=== PATIENT | female | born 1960 | race Caucasian/White ===

== ENCOUNTER 2024-09-12 20:03 | Inpatient (IN) ==
--- NOTE | 2024-09-12 20:15 | Emergency Department Note ---
Impression & Plan Pulmonary edema, Acute exacerbation of chronic obstructive pulmonary disease, Acute respiratory distress ED Provider Note NAME: SRAVANI DAVIS AGE: 64 SEX: F : 1960 ARRIVES VIA: Ambulance INFORMANT: Patient, EMS ED PROVIDER(S): Emery Dorsey DO CHIEF COMPLAINT: Shortness of breath HPI: The patient is a 64-year-old female who has a history of cardiomyopathy CHF as well as COPD who presented to the emergency department for shortness of breath. The patient ran out of her Lasix approximately 3 days ago. She states that ever since that time she has been noticing worsening shortness of breath. She does note lower extremity swelling. She denies have any chest pain. She has had no hemoptysis. She denies any trauma. She does continue to use tobacco products. The patient was treated with IV Lasix as well as BiPAP prior to arrival. ROS: See above HPI for pertinent positives & negatives. A total of 10 systems reviewed and were otherwise negative. PAST MEDICAL HISTORY: See Below PAST SURGICAL HISTORY: See Below FAMILY HISTORY: See Below SOCIAL HISTORY: See Below HOME MEDICATIONS: See Below ALLERGIES: See Below VITALS: See Below PHYSICAL EXAMINATION: GENERAL: The patient is awake and alert. The patient is nonanxious appearing. EYES: The conjunctivae are clear. The pupils are round and reactive. EARS, NOSE, MOUTH AND THROAT: The nose is without any evidence of any deformity. NECK: The neck is nontender and supple. RESPIRATORY: Diminished breath sounds are noted throughout. There is faint rales in both lower lung sandoval. Conversational dyspnea is noted. CARDIOVASCULAR: Regular rate and rhythm noted there no murmurs rubs or gallops normal S1 normal S2. GASTROINTESTINAL: The abdomen is soft. Abdomen is nontender. MUSCULOSKELETAL/EXTREMITIES: There is no evidence of gross deformity full range of motion is noted in the hips and shoulders. SKIN: Pedal edema was noted bilaterally. Skin was cool and dry. NEUROLOGIC: Patient is awake alert and oriented x3 MEDICAL DECISION MAKING: The patient is a 64-year-old female who presented to the emergency department for an evaluation of difficulty breathing. The patient was placed on BiPAP prior to arrival. She was able to tolerate that for short period of time but ultimately required moving to high flow nasal cannula. Vital signs are reassuring. The patient was treated with IV Lasix prior to arrival as well as in the emergency department. The patient was also treated with DuoNeb therapy. I discussed patient's laboratory and radiographic studies with her. Given her findings I do feel the patient would be a better candidate for inpatient management. For this reason [facility] agreed to evaluate the patient in the emergency department for further management and disposition. The patient's condition was improved. Triage Nursing notes reviewed. Prior medical records reviewed Vital Signs: reviewed and remarkable for hypotension and tachycardia. Differential diagnosis: Reactive airway disease, pneumonia, pneumothorax, COPD, CHF, infections, cardiac ischemia, pulmonary embolism, musculoskeletal, gastrointestinal, as well as other pathologies. ER treatment provided: See below Diagnostics interpreted by me: ECG: EKG was obtained in the emergency department. My interpretation is sinus tachycardia at 114 bpm. PVCs were noted. Poor R wave progression was noted with low voltage throughout. This was compared to a tracing from August 06, 2024. No changes were noted Cardiac Monitoring: An order was placed for continuous cardiac monitoring. The monitor shows a rate of 114 bpm with sinus tachycardia. Laboratory studies: As stated above and show below. Imaging studies: See below. Radiographic imaging was reviewed by myself Consultation(s): I discussed this case with Dr. Mock who is on-call for the [facility]. ED COURSE: Procedures: none Critical Care: I have personally spent greater than 40 minutes of critical care time in the direct management of this patient. This includes bedside care, interpretation of diagnostic studies, and testing, discussion with consultants, patient, and family members, and other required patient management activities. This 40 minutes is in excess of all separately billable procedures. Past Med/Surg History Problem List (Updated 09/13/24 @ 00:13 by Emery Dorsey DO) Acute respiratory distress (Acute) Acute exacerbation of chronic obstructive pulmonary disease (Acute) Pulmonary edema (Acute) Dilated cardiomyopathy Acute exacerbation of CHF (congestive heart failure) (Acute) Hypomagnesemia (Acute) Hypomagnesemia Acute hypoxic respiratory failure Biventricular failure H/O umbilical hernia repair (09/10/22) Umbilical hernia repair. Dr. Perez Encounter for pre-operative examination High cholesterol Asthma History of bronchitis Adverse reaction to anesthetic agent 43 yrs ago, sodium pentothal- Stopped breathing Could hear and see everything Diabetes Hypertension no meds at this time History of x 2 History of appendectomy COPD (chronic obstructive pulmonary disease) uses inhalers daily Diabetic neuropathy Osteoarthritis Medical History Type 2 diabetes mellitus Chronic cough GERD (gastroesophageal reflux disease) Current smoker 2 pack per day smoker On home oxygen therapy 2.5 LPM @ HS Family History Mother CHF (congestive heart failure) Diabetes Heart disease Stroke Sister Cancer Diabetes Father Diabetes Heart disease Social History Smoking Status: Current every day smoker Tobacco Type: Cigarettes Age Started Using Tobacco: 12; packs per day: 2; Cigarettes Per Day: 2 packs per day - advised; Second Hand Exposure: Yes; Do You Dip or Chew Tobacco: No; Hx Alcohol Use: No Hx Substance Use: No Preferred Language: Lebanese Communication Ability: Effective Visual Impairment: No Limitations Billing And Accounting Staff Assistant Required: No Beliefs That Will Affect Care: None Current Living Situation: Spouse How many Children do You have: 3 Feels Safe at Home: Yes Diet: diabetic during the past year weight has: remained stable Assistive Devices: Oxygen - Continuous Allergies Allergies Allergy/AdvReac Type Severity Reaction Status Date / Time codeine Allergy Severe Hives Verified 09/12/24 21:51 Penicillins Allergy Severe Hives Verified 09/12/24 21:51 thiopental [From Pentothal] AdvReac Unknown awareness Verified 09/12/24 21:51 under anesthesia Home Meds Home Medications Medication Instructions Recorded Confirmed atorvastatin 20 mg tablet 20 mg PO QA 08/22/22 09/12/24 quetiapine 100 mg tablet (Seroquel) 100 mg PO HS 08/22/22 09/12/24 Oxygen Home 08/27/22 10/17/22 albuterol sulfate 2.5 mg/3 mL 2.5 mg inhalation Q4H PRN 08/27/22 09/12/24 (0.083 %) solution for nebulization Shortness Of Breath Or Wheezing albuterol sulfate 90 mcg/actuation 2 inh inhalation Q6H PRN Shortness 08/27/22 09/12/24 breath activated powder inhaler Of Breath Or Wheezing aspirin 81 mg tablet,delayed 81 mg PO DAILY 08/06/24 09/12/24 release pantoprazole 40 mg tablet,delayed 40 mg PO QAM 08/06/24 09/12/24 release quetiapine 25 mg tablet 25 mg PO QDL PRN ONLY IF NEEDED 08/06/24 09/12/24 PER PT. quetiapine 50 mg tablet 50 mg PO QDL PRN ONLY IF NEEDED 08/06/24 09/12/24 PER PT furosemide 40 mg tablet (Lasix) 40 mg PO BID 09/12/24 09/12/24 insulin glargine 100 unit/mL (3 20 unit subcut HS 09/12/24 09/12/24 mL) subcutaneous pen (Lantus Solostar U-100 Insulin) metoprolol succinate 25 mg 12.5 mg PO DAILY 09/12/24 09/12/24 tablet,extended release 24 hr Previous Rx's Medication Instructions Recorded docusate sodium 100 mg capsule 100 mg PO BID #0 caps 08/08/24 polyethylene glycol 3350 17 gram 17 g PO BID #0 ea 08/08/24 oral powder packet (Miralax) Results & Data (ED) Vital Signs Vital Signs - 24 hr 09/12/24 20:00 09/12/24 20:00 09/12/24 20:10 Temperature 36.8 C Temperature Source Oral Pulse Rate 115 H 112 H Pulse Rate [Finger] 116 H Pulse Rhythm [Finger] Respiratory Rate 15 15 24 Respiratory Effort / Characteristics Spontaneous Spontaneous Short of Breath SOB on Exertion Respiratory Depth Normal Normal Respiratory Pattern Regular Blood Pressure 112/80 Blood Pressure [Right Arm] Blood Pressure Mean 90 Blood Pressure Mean [Right Arm] Pulse Oximetry 100 100 100 Oxygen Delivery Method BiPAP BiPAP Oxygen Flow Rate 60 Fraction of Inspired Oxygen 60 SaO2/FiO2 Ratio Sepsis Recent Fever Within 48 Hours No Sepsis New/Unexplained Change in Mental Status N/A Sepsis Action Taken by Nursing No Action Required 09/12/24 20:15 09/12/24 20:24 09/12/24 20:48 Temperature Temperature Source Pulse Rate 112 H Pulse Rate [Finger] 134 H Pulse Rhythm [Finger] Respiratory Rate 26 H Respiratory Effort / Characteristics Spontaneous Accessory Muscle Use Respiratory Depth Respiratory Pattern Blood Pressure Blood Pressure [Right Arm] Blood Pressure Mean Blood Pressure Mean [Right Arm] Pulse Oximetry 100 97 Oxygen Delivery Method BiPAP High Flow Nasal Cannula Oxygen Flow Rate 60 Fraction of Inspired Oxygen 60 40 SaO2/FiO2 Ratio 166 Sepsis Recent Fever Within 48 Hours Sepsis New/Unexplained Change in Mental Status Sepsis Action Taken by Nursing 09/12/24 20:57 09/12/24 22:10 09/12/24 22:14 Temperature Temperature Source Pulse Rate Pulse Rate [Finger] 114 H 117 H 114 H Pulse Rhythm [Finger] Regular Respiratory Rate 26 H 20 18 Respiratory Effort / Characteristics Short of Breath Non-Labored Spontaneous Respiratory Depth Normal Normal Respiratory Pattern Blood Pressure Blood Pressure [Right Arm] 112/80 96/69 L Blood Pressure Mean Blood Pressure Mean [Right Arm] 90 78 Pulse Oximetry 97 97 96 Oxygen Delivery Method High Flow Nasal Cannula High Flow Nasal Cannula High Flow Nasal Cannula Oxygen Flow Rate 40 Fraction of Inspired Oxygen 60 50 SaO2/FiO2 Ratio 161 Sepsis Recent Fever Within 48 Hours Sepsis New/Unexplained Change in Mental Status Sepsis Action Taken by [facility] Medications Current Medication List: was personally reviewed by me Laboratory Data Attestation: I reviewed the patient's lab results. 09/12/24 20:17 09/12/24 20:17 Lab Results 09/12/24 09/12/24 09/12/24 Range/Units 20:17 20:50 22:58 WBC 7.97 (4.8-10.8) K/ul RBC 5.25 (4.20-5.40) M/uL Hgb 13.9 (12.0-16.0) g/dl Hct 45.0 (37.0-47.0) % MCV 85.7 (80.0-100.0) fL MCH 26.5 (25.0-34.0) pg MCHC 30.9 L (32.0-36.0) g/dL RDW Std Deviation 52.9 H (36.4-46.3) fL RDW Coeff of Robin 17.9 H (11.5-14.5) % Plt Count 288 (130-400) K/uL MPV 9.8 (9.4-12.4) fL Immature Gran % (Auto) 0.3 % Neut % (Auto) 71.9 % Lymph % (Auto) 20.1 % [place] % (Auto) 6.4 % Eos % (Auto) 0.4 % Baso % (Auto) 0.9 % Neut # (Auto) 5.74 (1.40-6.50) K/uL Lymph # (Auto) 1.60 (1.20-3.40) K/uL [place] # (Auto) 0.51 (0.11-0.59) K/uL Eos # (Auto) 0.03 (0.00-0.50) K/uL Baso # (Auto) 0.07 (0.00-0.20) K/uL Immature Gran # (Auto) 0.02 (0.01-0.20) K/uL PT 11.6 (9.0-12.0) Seconds INR 1.1 (0.9-1.1) APTT 22 (21-31) Seconds PTT Ratio 0.8 VBG pH 7.27 L (7.36-7.41) VBG pCO2 69 H (38-50) mmHg VBG pO2 57 mmHg VBG HCO3 32 mmol/L VBG O2 Saturation 85.1 % VBG Base Excess 2.6 mEq/L Sodium 140 (136-145) mmol/L Potassium 4.1 (3.5-5.1) mmol/L Chloride 97 L (98-107) mmol/L Carbon Dioxide 33 H (21-32) mmol/L Anion Gap 10 (3-11) BUN 19 (6-23) mg/dl Creatinine 0.84 (0.6-1.2) mg/dl Est Cr Clr Drug Dosing 62.3 ml/min eGFR 78.03 BUN/Creatinine Ratio 22.6 H (10-20) Glucose 240 H (70-99(Fasting)) mg/dl Calcium 9.5 (8.6-10.3) mg/dl Magnesium 1.7 (1.7-2.4) mg/dl Total Bilirubin 0.8 (0.2-1.0) mg/dl AST 14 (13-39) U/L ALT 24 (7-52) U/L Alkaline Phosphatase 176 H (34-104) U/L Troponin I High Sens 20.5 H 21.8 H (0-14) pg/ml B-Natriuretic Peptide 1241 H (0-100) pg/ml Total Protein 7.2 (6.0-8.3) gm/dl Albumin 3.7 (3.4-5.0) gm/dl Globulin 3.5 (2.5-4.0) gm/dl Albumin/Globulin Ratio 1.1 (0.9-2) Urine Color Urine Appearance (Clear) Urine pH (4.5-7.5) Ur Specific [place] (1.000-1.030) Urine Protein (Negative) Urine Glucose (UA) (Negative) Urine Ketones (Negative) Urine Blood (Negative) Urine Nitrite (Negative) Urine Bilirubin (Negative) Urine Urobilinogen (Negative) Ur Leukocyte Esterase (Negative) Urine WBC (Auto) (0-5) /hpf Urine RBC (Auto) (0-2) /hpf U Hyaline Cast (Auto) (0-2) /lpf U Epithel Cells (Auto) (0-2) /hpf Urine Bacteria (Auto) (None Seen) Urine Comment SARS-CoV-2 (PCR) NEGATIVE (Negative) Influenza Type A (PCR) Negative (Neg) Influenza Type B (PCR) Negative (Neg) RSV (RT-PCR) Negative (Neg) 09/12/24 Range/Units Unknown WBC (4.8-10.8) K/ul RBC (4.20-5.40) M/uL Hgb (12.0-16.0) g/dl Hct (37.0-47.0) % MCV (80.0-100.0) fL MCH (25.0-34.0) pg MCHC (32.0-36.0) g/dL RDW Std Deviation (36.4-46.3) fL RDW Coeff of Robin (11.5-14.5) % Plt Count (130-400) K/uL MPV (9.4-12.4) fL Immature Gran % (Auto) % Neut % (Auto) % Lymph % (Auto) % [place] % (Auto) % Eos % (Auto) % Baso % (Auto) % Neut # (Auto) (1.40-6.50) K/uL Lymph # (Auto) (1.20-3.40) K/uL [place] # (Auto) (0.11-0.59) K/uL Eos # (Auto) (0.00-0.50) K/uL Baso # (Auto) (0.00-0.20) K/uL Immature Gran # (Auto) (0.01-0.20) K/uL PT (9.0-12.0) Seconds INR (0.9-1.1) APTT (21-31) Seconds PTT Ratio VBG pH (7.36-7.41) VBG pCO2 (38-50) mmHg VBG pO2 mmHg VBG HCO3 mmol/L VBG O2 Saturation % VBG Base Excess mEq/L Sodium (136-145) mmol/L Potassium (3.5-5.1) mmol/L Chloride (98-107) mmol/L Carbon Dioxide (21-32) mmol/L Anion Gap (3-11) BUN (6-23) mg/dl Creatinine (0.6-1.2) mg/dl Est Cr Clr Drug Dosing ml/min eGFR BUN/Creatinine Ratio (10-20) Glucose (70-99(Fasting)) mg/dl Calcium (8.6-10.3) mg/dl Magnesium (1.7-2.4) mg/dl Total Bilirubin (0.2-1.0) mg/dl AST (13-39) U/L ALT (7-52) U/L Alkaline Phosphatase (34-104) U/L Troponin I High Sens (0-14) pg/ml B-Natriuretic Peptide (0-100) pg/ml Total Protein (6.0-8.3) gm/dl Albumin (3.4-5.0) gm/dl Globulin (2.5-4.0) gm/dl Albumin/Globulin Ratio (0.9-2) Urine Color Yellow Urine Appearance Clear (Clear) Urine pH 6.0 (4.5-7.5) Ur Specific [place] 1.011 (1.000-1.030) Urine Protein Trace H (Negative) Urine Glucose (UA) Trace H (Negative) Urine Ketones Negative (Negative) Urine Blood Negative (Negative) Urine Nitrite Negative (Negative) Urine Bilirubin Negative (Negative) Urine Urobilinogen Negative (Negative) Ur Leukocyte Esterase Negative (Negative) Urine WBC (Auto) 0-5 (0-5) /hpf Urine RBC (Auto) 0-2 (0-2) /hpf U Hyaline Cast (Auto) 3-5 H (0-2) /lpf U Epithel Cells (Auto) 3-5 H (0-2) /hpf Urine Bacteria (Auto) 1+ H (None Seen) Urine Comment SARS-CoV-2 (PCR) (Negative) Influenza Type A (PCR) (Neg) Influenza Type B (PCR) (Neg) RSV (RT-PCR) (Neg) Administered Medications Discontinued Medications Albuterol (Albut/Ipratrop 3mg/0.5mg Neb 3 Ml Vial) 12 ml NEB ONE ONE; Protocol Stop: 09/12/24 20:07 Last Admin: 09/12/24 20:19 Dose: 12 ml Documented By: ARMEN Albuterol (Albut/Ipratrop 3mg/0.5mg Neb 3 Ml Vial) Confirm Administered Dose 12 ml .ROUTE .STK-MED ONE Stop: 09/12/24 20:08 Last Admin: 09/12/24 20:19 Dose: Not Given Documented By: ARMEN Furosemide (Furosemide 40 Mg/4 Ml Vial) 40 mg IV ONE ONE Stop: 09/12/24 21:53 Last Admin: 09/12/24 22:08 Dose: 40 mg Documented By: LARON Lorazepam (Lorazepam 2 Mg/1 Ml Vial) 0.5 mg IV NOW STA Stop: 09/12/24 20:40 Last Admin: 09/12/24 20:51 Dose: 0.5 mg Documented By: LARON Imaging Data Attestation: I personally reviewed and interpreted this imaging study as follows: My Impression: 1 view chest x-ray was obtained in the emergency department. My interpretation is cardiomegaly with bilateral pleural effusions left greater than right. Final report below. Radiologist's Impression: Chest X-Ray 09/12/24 20:06 Exam(s): XR CXR 1 VIEW EXAM: XR Chest, 1 View CLINICAL HISTORY: Reason for exam: Dyspnea. TECHNIQUE: Frontal view of the chest. COMPARISON: 08/08/2024 FINDINGS: Lungs: See below. Pleural space: Blunting of the left costophrenic angle and streaky densities in both lung bases consistent with small left pleural effusion and mild basilar infiltrate or atelectasis. No pneumothorax. Heart: The cardiac silhouette is mildly enlarged. Mediastinum: Unremarkable. Normal mediastinal contour. Bones/joints: Unremarkable. No acute fracture. IMPRESSION: 1. Blunting of the left costophrenic angle and streaky densities in both lung bases consistent with small left pleural effusion and mild basilar infiltrate or atelectasis. 2. The cardiac silhouette is mildly enlarged. Electronically signed by: Theron Gunter MD 09/12/24 21:48 PM Discharge Plan Visit Data Chief Complaint: Edema To Extremity Stated Complaint: Edema in Lower Extremities, CHF ED Provider: Emery Dorsey Discharge Problem: Pulmonary edema, Acute exacerbation of chronic obstructive pulmonary disease, Acute respiratory distress Patient Disposition: Being Evaluated by Hospitalist Condition: Fair Forms Stand Alone Forms: My [facility] nxtControl Prescriptions Prescriptions: No Action quetiapine [Seroquel] 100 mg tablet 100 mg PO HS atorvastatin 20 mg tablet 20 mg PO QAM (DME) Oxygen Home Liters Per Minute See Rx Instructions .Route Rx Instructions: As directed, at night and with activity albuterol sulfate 90 mcg/actuation aerosol powdr breath activated 2 inh inhalation Q6H PRN (Reason: Shortness Of Breath Or Wheezing) albuterol sulfate 2.5 mg /3 mL (0.083 %) solution for nebulization 2.5 mg inhalation Q4H PRN (Reason: Shortness Of Breath Or Wheezing) quetiapine 25 mg tablet 25 mg PO QDL PRN (Reason: ONLY IF NEEDED PER PT.) aspirin 81 mg Tablet,Delayed Release (Dr/Ec) 81 mg PO DAILY pantoprazole 40 mg tablet,delayed release (DR/EC) 40 mg PO QAM quetiapine 50 mg tablet 50 mg PO QDL PRN (Reason: ONLY IF NEEDED PER PT) polyethylene glycol 3350 [Miralax] 17 gram Powder In Packet 17 g PO BID Qty: 0 0RF docusate sodium 100 mg Capsule 100 mg PO BID Qty: 0 0RF metoprolol succinate 25 mg tablet extended release 24 hr 12.5 mg PO DAILY insulin glargine [Lantus Solostar U-100 Insulin] 100 unit/mL (3 mL) insulin pen 20 unit SUBCUT HS furosemide [Lasix] 40 mg tablet 40 mg PO BID Referrals Referrals: Adrienne Malone PA-C [Primary Care Provider] -
[2024-09-12] MEDS: ALBUT/IPRATROP 3MG/0.5MG NEB 3 ML VIAL ONE (20:19)
[2024-09-12] MEDS: ALBUT/IPRATROP 3MG/0.5MG NEB 3 ML VIAL NEB ONE (20:19)
[2024-09-12 20:44] LABS: Hematocrit (blood only) 45.0 % (37.0-47.0); Hemoglobin 13.9 g/dl (12.0-16.0); Immature Granulocytes # (auto) 0.02 K/uL (0.01-0.20); Immature Granulocytes % (auto) 0.3 %; Mean Corpuscular Hemoglobin 26.5 pg (25.0-34.0); Mean Corpuscular Volume 85.7 fL (80.0-100.0); Platelet Count 288 K/uL (130-400); RDW Standard Deviation 52.9 fL (36.4-46.3); Red Blood Count 5.25 M/uL (4.20-5.40); White Blood Count 7.97 K/ul (4.8-10.8)
[2024-09-12 21:02] LABS: Base Excess VBG 2.6 mEq/L; HCO3 VBG 32 mmol/L; Oxygen Saturation VBG 85.1 %; PCO2 VBG 69 mmHg (38-50); PO2 VBG 57 mmHg; pH VBG 7.27 (7.36-7.41)
[2024-09-12 21:07] LABS: Alanine Aminotransferase 24.0 U/L (7-52); Albumin Globulin Ratio 1.1 (0.9-2); Alkaline Phosphatase 176.0 U/L (34-104); Anion Gap 10.0 (3-11); Bilirubin,Total 0.8 mg/dl (0.2-1.0); Blood Urea Nitrogen 19.0 mg/dl (6-23); Calcium 9.5 mg/dl (8.6-10.3); Carbon Dioxide 33.0 mmol/L (21-32); Chloride 97.0 mmol/L (98-107); Creatinine Clr Calc Pharmacy 62.3 ml/min; Globulin 3.5 gm/dl (2.5-4.0); Glucose 240.0 mg/dl (70-99(Fasting)); Magnesium 1.7 mg/dl (1.7-2.4); Potassium 4.1 mmol/L (3.5-5.1); Sodium 140.0 mmol/L (136-145); Total Protein 7.2 gm/dl (6.0-8.3)
[2024-09-12 21:24] LABS: INR 1.1 (0.9-1.1); Partial Thromboplastin Time 22 Seconds (21-31); Prothrombin Time 11.6 Seconds (9.0-12.0)
[2024-09-12 21:27] LABS: Influenza A virus by PCR Negative (Neg); Influenza B virus by PCR Negative (Neg); SARS CoV2 RNA(COVID-19) Ceph NEGATIVE (Negative)
--- NOTE | 2024-09-12 21:49 | XRay Report ---
Exam(s): XR CXR 1 VIEW EXAM: XR Chest, 1 View CLINICAL HISTORY: Reason for exam: Dyspnea. TECHNIQUE: Frontal view of the chest. COMPARISON: 08/08/2024 FINDINGS: Lungs: See below. Pleural space: Blunting of the left costophrenic angle and streaky densities in both lung bases consistent with small left pleural effusion and mild basilar infiltrate or atelectasis. No pneumothorax. Heart: The cardiac silhouette is mildly enlarged. Mediastinum: Unremarkable. Normal mediastinal contour. Bones/joints: Unremarkable. No acute fracture. IMPRESSION: 1. Blunting of the left costophrenic angle and streaky densities in both lung bases consistent with small left pleural effusion and mild basilar infiltrate or atelectasis. 2. The cardiac silhouette is mildly enlarged. Electronically signed by: Theron Gunter MD 09/12/24 21:48 PM
[2024-09-12] MEDS: FUROSEMIDE 40 MG/4 ML VIAL IV ONE (22:08)
[2024-09-12 22:30] LABS: Appearance Urine Clear (Clear); Bacteria Urine Automated 1+ (None Seen); Glucose Urine UA Trace (Negative); RBC Urine Automated 0-2 /hpf (0-2); WBC Urine Automated 0-5 /hpf (0-5)
--- NOTE | 2024-09-12 23:26 | History & Physical Report ---
Date of Service September 12, 2024 Assessment & Plan (1) Acute on chronic respiratory failure with hypoxia and hypercapnia: (2) Acute on chronic systolic heart failure: (3) Candidiasis of mouth and esophagus: (4) Dilated cardiomyopathy: (5) COPD (chronic obstructive pulmonary disease): (6) Hypertension: (7) Type 2 diabetes mellitus: (8) GERD (gastroesophageal reflux disease): (9) Current smoker: Plan Ms Silveira is a 64yo female with long-standing chronic hypoxic respiratory fail ure on home O2, 3 liters continuously; COPD; ongoing tobacco dependence; T2DM; and recently diagnosed severe systolic CHF during her hospitalization in July from 08/04 to 08/06. She presents via EMS from her home with severe dyspnea at rest, dyspnea with minimal exertion, orthopnea, PND, worsening LE edema, worsening abdominal bloating/distension from edema, and at least 10 pounds of fluid weight since her hospital discharge on 08/06. She reports compliance with her lasix 40mg BID but ran out of such about 3 days ago. She has not been eating high-salt foods. #acute/chronic respiratory failure with hypoxia & hypercapnia - -despite high pCO2 on blood gas she was awake, alert, gave full history -could not tolerate BIPAP; thus changed to high-flow NC to help with increased work of breathing -- tolerating such -acute component 2nd to decompensated CHF -titrate O2 to keep sats 90-92% #acute/chronic systolic CHF - -severe systolic CHF was diagnosed in July during her hospitalization -EF 15-20% -was taking lasix 40mg BID leading up to this re-admission; despite taking BID lasix she had significant weight gain over the last few weeks -patient reports recent prednisone taper for COPD flare earlier this month; steroids may have caused fluid retention -running out of lasix did not help either -will place on lasix 40mg IV BID -consider addition of aldactone if BP allows -consider addition of low-dose Entresto later in the stay if BP allows -cont meto succ 12.5mg daily -place on K/mag supplementation -daily weights -patient asks if she can have her heart cath here at [facility] rather than [place]; although this would be the customary work-up for newly found cardiomyopathy not sure she is a great candidate for cath; would defer this decision to [facility] Cardiology -after hospital discharge she should follow with a CHF clinic given the severity of her systolic dysfunction - she is interested in following with [facility] CHF clinic (she would be switching from cardiology in [place]) #T2DM, uncontrolled - -cont lantus -cont novolog SSI - try correction factor 45; carb ratio 1:15 -BSGs ac/hs #candidiasis of mouth - -likely 2nd to recent prednisone/abx as well as chronic inhalers -nystatin solution 5ml QID #COPD - -no exacerbation at this time -takes Trelegy at home - will convert to fluticasone furoate 1 puff daily + umeclidinium/vilanterol 1 puff daily -albuterol nebs prn -O2 #tobacco dependence - -offer nicoderm patch #DVT proph - -add lovenox 40mg daily pt's children updated at bedside History of Present Illness Chief Complaint: worsening shortness of breath, edema Primary Care Provider: Adrienne Malone PA-C Ms Silveira is a 64yo female with long-standing chronic hypoxic respiratory failure on home O2, 3 liters continuously; COPD; ongoing tobacco dependence; T2DM; and recently diagnosed severe systolic CHF during her hospitalization in July from 08/04 to 08/06. She presents via EMS from her home with severe dyspnea at rest, dyspnea with minimal exertion, orthopnea, PND, worsening LE edema, worsening abdominal bloating/distension from edema, and at least 10 pounds of fluid weight since her hospital discharge on 08/06. She reports compliance with her lasix 40mg BID but ran out of such about 3 days ago. She has not been eating high-salt foods. After her July hospitalization she saw Dr Teena Moncada, cardiology in [place], and left heart cath was recommended as part of her work-up of the new-onset systolic CHF. This was scheduled for sometime in September. Upon presentation today to [facility] ER she was in distress and BIPAP was initiated. She could not tolerate such and thus was switched to high-flow NC. She did better with high-flow and her distress improved. Lasix IV was given by the ER attending. At the time of my assessment she was on high-flow NC, 40 liters/50% FiO2. She was able to give full history and reported her breathing was better in comparison to earlier in the day. Allergies Allergy/AdvReac Type Severity Reaction Status Date / Time codeine Allergy Severe Hives Verified 09/12/24 21:51 Penicillins Allergy Severe Hives Verified 09/12/24 21:51 thiopental [From Pentothal] AdvReac Unknown awareness Verified 09/12/24 21:51 under anesthesia Home Medications Medication Instructions Recorded Confirmed Type atorvastatin 20 mg tablet 20 mg PO QAM 08/22/22 09/12/24 History quetiapine 100 mg tablet (Seroquel) 100 mg PO HS 08/22/22 09/12/24 History Oxygen Home 08/27/22 10/17/22 History albuterol sulfate 2.5 mg/3 mL 2.5 mg inhalation Q4H PRN 08/27/22 09/12/24 History (0.083 %) solution for nebulization Shortness Of Breath Or Wheezing albuterol sulfate 90 mcg/actuation 2 inh inhalation Q6H PRN Shortness 08/27/22 09/12/24 History breath activated powder inhaler Of Breath Or Wheezing aspirin 81 mg tablet,delayed 81 mg PO DAILY 08/06/24 09/12/24 History release pantoprazole 40 mg tablet,delayed 40 mg PO QAM 08/06/24 09/12/24 History release quetiapine 25 mg tablet 25 mg PO QDL PRN ONLY IF NEEDED 08/06/24 09/12/24 History PER PT. quetiapine 50 mg tablet 50 mg PO QDL PRN ONLY IF NEEDED 08/06/24 09/12/24 History PER PT docusate sodium 100 mg capsule 100 mg PO BID #0 caps 08/08/24 09/12/24 Rx polyethylene glycol 3350 17 gram 17 g PO BID #0 ea 08/08/24 09/12/24 Rx oral powder packet (Miralax) furosemide 40 mg tablet (Lasix) 40 mg PO BID 09/12/24 09/12/24 History insulin glargine 100 unit/mL (3 20 unit subcut HS 09/12/24 09/12/24 History mL) subcutaneous pen (Lantus Solostar U-100 Insulin) metoprolol succinate 25 mg 12.5 mg PO DAILY 09/12/24 09/12/24 History tablet,extended release 24 hr Past Med/Surg History Problem List (Updated 09/13/24 @ 05:43 by Balwinder Mock MD) Candidiasis of mouth and esophagus Acute on chronic systolic heart failure Acute on chronic respiratory failure with hypoxia and hypercapnia Acute respiratory distress (Acute) Acute exacerbation of chronic obstructive pulmonary disease (Acute) Pulmonary edema (Acute) Acute exacerbation of CHF (congestive heart failure) (Acute) Hypomagnesemia (Acute) Medical History (Updated 09/13/24 @ 05:43 by Balwinder Mock MD) Systolic CHF EF 15-20%, echo 07/2024 Chronic hypoxic respiratory failure on home O2, 3 liters continuously Dilated cardiomyopathy Biventricular failure Asthma High cholesterol Adverse reaction to anesthetic agent 43 yrs ago, sodium pentothal- Stopped breathing Could hear and see everything Osteoarthritis Diabetic neuropathy COPD (chronic obstructive pulmonary disease) uses inhalers daily Hypertension no meds at this time Diabetes Type 2 diabetes mellitus Chronic cough GERD (gastroesophageal reflux disease) Current smoker 2 pack per day smoker On home oxygen therapy 3 liters continuously Surgical History (Updated 09/13/24 @ 05:36 by Balwinder Mock MD) H/O umbilical hernia repair (09/10/22) Umbilical hernia repair. Dr. Perez History of appendectomy History of x 2 Family History (Updated 09/13/24 @ 05:37 by Balwinder Mock MD) Mother , age 58 CHF (congestive heart failure) Diabetes Heart disease Stroke Sister Cancer Diabetes Lung disease Father , age 59 Diabetes Heart disease Valvular heart disease Social History (Updated 09/13/24 @ 05:37 by Balwinder Mock MD) Smoking Status: Current every day smoker Tobacco Type: Cigarettes Age Started Using Tobacco: 13; packs per day: 2; Second Hand Exposure: Yes; Do You Dip or Chew Tobacco: No; Hx Alcohol Use: No Hx Substance Use: No Preferred Language: Guatemalan Communication Ability: Effective Visual Impairment: No Limitations Hosiery Bagger Required: No Beliefs That Will Affect Care: None marital status: Current Living Situation: Spouse How many Children do You have: 6 How many Children do You have Comment: 2 biological children; 4 step-children Feels Safe at Home: Yes Diet: diabetic during the past year weight has: remained stable Assistive Devices: Cane, Oxygen - Continuous and Walker Review of Systems Review of Systems: gen - no fevers or chills; appetite has been poor of late; +weight gain eyes - no visual change HENT - mild sore throat, no ear pain CV - no chest pain; +edema, orthopnea, PND Pulm - cough with minimal sputum; +dyspnea at rest & with exertion GI - bloating; no pain; no vomiting; no blood in stool - no dysuria musculo - no joint swelling endo - BSGs have been high at home skin - "bumps" on back of arms neuro - no focal motor weakness Results & Data Results & Data Vital Signs (Past 12 Hours) Vital Signs Temp Pulse Pulse Resp BP BP Pulse Ox 09/12/24 22:14 114 H 18 96 09/12/24 22:10 117 H 20 96/69 L 97 09/12/24 20:57 114 H 26 H 112/80 97 09/12/24 20:48 134 H 26 H 97 09/12/24 20:24 112 H 09/12/24 20:15 100 09/12/24 20:10 36.8 C 112 H 24 112/80 100 09/12/24 20:00 115 H 15 100 09/12/24 20:00 116 H 15 100 O2 Del Method O2 Flow Rate FiO2 09/12/24 22:14 High Flow Nasal Cannula 40 50 09/12/24 22:10 High Flow Nasal Cannula 60 09/12/24 20:57 High Flow Nasal Cannula 09/12/24 20:48 High Flow Nasal Cannula 60 40 09/12/24 20:24 09/12/24 20:15 BiPAP 60 09/12/24 20:10 BiPAP 09/12/24 20:00 60 09/12/24 20:00 BiPAP 60 Laboratory Results Laboratory Results - last 24 hr 09/12/24 09/12/24 09/12/24 20:17 20:50 22:58 WBC 7.97 RBC 5.25 Hgb 13.9 Hct 45.0 MCV 85.7 MCH 26.5 MCHC 30.9 L RDW Std Deviation 52.9 H RDW Coeff of Robin 17.9 H Plt Count 288 MPV 9.8 Immature Gran % (Auto) 0.3 Neut % (Auto) 71.9 Lymph % (Auto) 20.1 Christian % (Auto) 6.4 Eos % (Auto) 0.4 Baso % (Auto) 0.9 Neut # (Auto) 5.74 Lymph # (Auto) 1.60 Christian # (Auto) 0.51 Eos # (Auto) 0.03 Baso # (Auto) 0.07 Immature Gran # (Auto) 0.02 PT 11.6 INR 1.1 APTT 22 PTT Ratio 0.8 VBG pH 7.27 L VBG pCO2 69 H VBG pO2 57 VBG HCO3 32 VBG O2 Saturation 85.1 VBG Base Excess 2.6 Sodium 140 Potassium 4.1 Chloride 97 L Carbon Dioxide 33 H Anion Gap 10 BUN 19 Creatinine 0.84 Est Cr Clr Drug Dosing 62.3 eGFR 78.03 BUN/Creatinine Ratio 22.6 H Glucose 240 H Calcium 9.5 Magnesium 1.7 Total Bilirubin 0.8 AST 14 ALT 24 Alkaline Phosphatase 176 H Troponin I High Sens 20.5 H 21.8 H B-Natriuretic Peptide 1241 H Total Protein 7.2 Albumin 3.7 Globulin 3.5 Albumin/Globulin Ratio 1.1 Urine Color Urine Appearance Urine pH Ur Specific [place] Urine Protein Urine Glucose (UA) Urine Ketones Urine Blood Urine Nitrite Urine Bilirubin Urine Urobilinogen Ur Leukocyte Esterase Urine WBC (Auto) Urine RBC (Auto) U Hyaline Cast (Auto) U Epithel Cells (Auto) Urine Bacteria (Auto) Urine Comment SARS-CoV-2 (PCR) NEGATIVE Influenza Type A (PCR) Negative Influenza Type B (PCR) Negative RSV (RT-PCR) Negative 09/12/24 Unknown WBC RBC Hgb Hct MCV MCH MCHC RDW Std Deviation RDW Coeff of Robin Plt Count MPV Immature Gran % (Auto) Neut % (Auto) Lymph % (Auto) Christian % (Auto) Eos % (Auto) Baso % (Auto) Neut # (Auto) Lymph # (Auto) Christian # (Auto) Eos # (Auto) Baso # (Auto) Immature Gran # (Auto) PT INR APTT PTT Ratio VBG pH VBG pCO2 VBG pO2 VBG HCO3 VBG O2 Saturation VBG Base Excess Sodium Potassium Chloride Carbon Dioxide Anion Gap BUN Creatinine Est Cr Clr Drug Dosing eGFR BUN/Creatinine Ratio Glucose Calcium Magnesium Total Bilirubin AST ALT Alkaline Phosphatase Troponin I High Sens B-Natriuretic Peptide Total Protein Albumin Globulin Albumin/Globulin Ratio Urine Color Yellow Urine Appearance Clear Urine pH 6.0 Ur Specific [place] 1.011 Urine Protein Trace H Urine Glucose (UA) Trace H Urine Ketones Negative Urine Blood Negative Urine Nitrite Negative Urine Bilirubin Negative Urine Urobilinogen Negative Ur Leukocyte Esterase Negative Urine WBC (Auto) 0-5 Urine RBC (Auto) 0-2 U Hyaline Cast (Auto) 3-5 H U Epithel Cells (Auto) 3-5 H Urine Bacteria (Auto) 1+ H Urine Comment SARS-CoV-2 (PCR) Influenza Type A (PCR) Influenza Type B (PCR) RSV (RT-PCR) Diagnostic Findings Chest X-Ray 09/12/24 20:06 Exam(s): XR CXR 1 VIEW EXAM: XR Chest, 1 View CLINICAL HISTORY: Reason for exam: Dyspnea. TECHNIQUE: Frontal view of the chest. COMPARISON: 08/08/2024 FINDINGS: Lungs: See below. Pleural space: Blunting of the left costophrenic angle and streaky densities in both lung bases consistent with small left pleural effusion and mild basilar infiltrate or atelectasis. No pneumothorax. Heart: The cardiac silhouette is mildly enlarged. Mediastinum: Unremarkable. Normal mediastinal contour. Bones/joints: Unremarkable. No acute fracture. IMPRESSION: 1. Blunting of the left costophrenic angle and streaky densities in both lung bases consistent with small left pleural effusion and mild basilar infiltrate or atelectasis. 2. The cardiac silhouette is mildly enlarged. Electronically signed by: Theron Gunter MD 09/12/24 21:48 PM EKG - my reading - sinus tach, LBBB, Q's anterior leads, low volate in some leads, no significant changes from prior EKG Code Status & VTE Plan Code Status DNR/DNI VTE Prophylaxis Plan VTE Prophylaxis will be ordered: Yes PG Care Time/CCT Total # of Minutes Spent Total Time Spent with Patient: Total time spent is greater than 50% in coordination of care (as documented) at patient's floor/unit and/or counseling patient: Coding Level of Care Code 05527 INT INP/OBS CARE 3/75MIN Diagnoses Acute on chronic respiratory failure with hypoxia and hypercapnia J96.21; J96.22 Acute on chronic systolic heart failure I50.23 Candidiasis of mouth and esophagus B37.81; B37.0 Dilated cardiomyopathy I42.0 COPD (chronic obstructive pulmonary disease) J44.9 Hypertension I10 Type 2 diabetes mellitus E11.9 GERD (gastroesophageal reflux disease) K21.9 Current smoker F17.200
[2024-09-13] MEDS: LANTUS PER UNIT CHARGE SQ ONE (00:54)
[2024-09-13] MEDS ORDERED: ALBUTEROL 0.083% NEBU SOLN 3 ML VIAL INH PRN (02:01)
[2024-09-13] MEDS ORDERED: NITROGLYCERIN SL 0.4 MG/TAB TAB SL PRN (02:01)
[2024-09-13] MEDS ORDERED: MELATONIN 3 MG TAB PO PRN (02:01)
[2024-09-13] MEDS ORDERED: GLUCOSE 10 TAB/TUBE PO PRN ×2 (02:30→07:28)
[2024-09-13] MEDS ORDERED: GLUCOSE 40% GEL 15 GM TUBE PO PRN ×2 (02:30→07:28)
[2024-09-13] MEDS ORDERED: GLUCAGON FOR INJ 1 MG VIAL SQ PRN ×2 (02:30→07:28)
[2024-09-13] MEDS ORDERED: CARBOHYDRATES FOR HYPOGLYCEMIA PO PRN (02:30)
[2024-09-13] MEDS ORDERED: DEXTROSE 50% 50 ML SYRINGE IV PRN ×2 (02:30→07:28)
[2024-09-13] MEDS: NYSTATIN SUSP 500,000 U/5 ML UDC PO SCH (03:34)
[2024-09-13] MEDS ORDERED: INSULIN ASPART PER UNIT CHARGE SC SCH (07:30)
[2024-09-13 07:57] LABS: Anion Gap 4.0 (3-11); Blood Urea Nitrogen 18.0 mg/dl (6-23); Calcium 8.6 mg/dl (8.6-10.3); Carbon Dioxide 36.0 mmol/L (21-32); Chloride 100.0 mmol/L (98-107); Creatinine Clr Calc Pharmacy 65.5 ml/min; Glucose 246.0 mg/dl (70-99(Fasting)); Potassium 3.7 mmol/L (3.5-5.1); Sodium 140.0 mmol/L (136-145)
[2024-09-13] MEDS: INSULIN ASPART PER UNIT CHARGE SC SCH (08:12)
[2024-09-13] MEDS: FLUTICASONE FUROATE 100MCG 14 PUFFS/INHALER INH SCH (08:14)
[2024-09-13] MEDS: UMECLIDINIUM/VILANTEROL 62.5/25MCG 7 PUFFS/INHALER INH SCH (08:14)
[2024-09-13] MEDS: ENOXAPARIN INJ 40 MG/0.4 ML SYR SQ SCH (08:17)
[2024-09-13] MEDS: MAGNESIUM OXIDE 400 MG TAB PO SCH ×2 (08:18→21:53)
[2024-09-13] MEDS: ASPIRIN 81 MG ECTAB PO SCH (08:18)
[2024-09-13] MEDS: ATORVASTATIN 20 MG TAB PO SCH (08:18)
[2024-09-13] MEDS: FUROSEMIDE 40 MG/4 ML VIAL IV SCH (08:19)
[2024-09-13] MEDS: DOCUSATE SODIUM 100 MG CAP PO SCH (08:19)
[2024-09-13] MEDS: POLYETHYLENE (MIRALAX) 17 GM PACK PO SCH (08:19)
[2024-09-13] MEDS: POTASSIUM CHLORIDE CRTAB 20 MEQ TABCR PO SCH (08:19)
[2024-09-13] MEDS: REMOVE NICODERM PATCH SCH (08:21)
[2024-09-13] MEDS: INSULIN HUMAN NPH SC SCH (08:22)
[2024-09-13] MEDS ORDERED: METOPROLOL SUCC 25MG EXT REL TAB PO SCH (09:00)
[2024-09-13] MEDS: NICOTINE 14 MG/24 HR PATCH TD SCH (10:12)
[2024-09-13] MEDS: METOPROLOL SUCC 25MG EXT REL TAB PO SCH (10:12)
[2024-09-13] MEDS: MAGNESIUM SULFATE / D5W 1 GM/100 ML BAG IV SCH (10:40)
--- NOTE | 2024-09-13 14:26 | Hospitalist Progress Note ---
Date of Service September 13, 2024 Assessment & Plan (1) Acute on chronic respiratory failure with hypoxia and hypercapnia: Plan: Supplemental oxygen per nasal cannula to keep saturations 90 to 92%. Avoid high oxygen saturations to prevent further CO2 retention. Wean to usual levels as tolerated. She is currently requiring high flow oxygen (2) Acute on chronic systolic heart failure: Plan: Ongoing brisk diuresis with parenteral Lasix. Will repeat chest x-ray again tomorrow, September 14. (3) Candidiasis of mouth and esophagus: Plan: Probably due to recent steroid therapy coupled with diabetes. Nystatin swish and swallow ordered (4) Dilated cardiomyopathy: Plan: Known ejection fraction of 15% per recent echo. Continue current medical management (5) COPD (chronic obstructive pulmonary disease): Plan: With chronic respiratory failure. Treat underlying CHF. Continue current medical management (6) Hypertension: Plan: Blood pressure is low normal currently. Metoprolol has been uptitrated. Will follow (7) Type 2 diabetes mellitus: Plan: NPH insulin twice daily. Sliding scale coverage as needed. ADA diet (8) Current smoker: Plan: Smoking cessation has been highly recommended to the patient Plan Hopeful discharge back home in 2 to 3 days Admission and Anticipated Discharge Date Admission Date: September 12, 2024 Subjective Alert and oriented. No distress. 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 She has diuresed briskly with parenteral Lasix. She would like to get established with [facility] cardiology and a consult will be placed tomorrow, September 14. Lantus insulin has been switched over to NPH twice daily. Magnesium replacement continues. Review of Systems 2 Review of Systems: Constitutionalno fever or chills. Recent weight gain and worsening peripheral edema ENTno blurred vision, no double vision, no epistaxis, no sore throat Respiratoryno cough, no wheezing. She has noted recent orthopnea and dyspnea on exertion Cardiacno palpitations, no chest pain, no syncope Brayden nausea, vomiting, diarrhea, melena, hematochezia GUno urinary retention, no urinary incontinence, no dysuria, no hematuria Musculoskeletalno joint pain, no muscle tenderness. She has noticed a worsening lower extremity edema bilaterally Skinno bruising, no rashes, no pruritus Neurono isolated weakness, no paresthesia, no weakness Psychno depression, no anxiety Physical Exam 2 Physical Exam: General-alert and oriented x3, no fever, no chills HEENT-head atraumatic and normocephalic, pupils equal and reactive to light, extraocular muscles intact. Oral thrush noted Neck-no lymphadenopathy or thyromegaly, trachea midline Chest-bibasilar inspiratory rales. No rhonchi. No wheeze Cardiac-regular rate and rhythm, normal S1 and S2 Abdomen-normal bowel sounds, no hepatosplenomegaly Extremities-2+ pitting edema bilateral lower extremities below the knees Neuro-cranial nerves II through XII intact, motor and sensory function within normal limits, strength symmetrical, no focal deficits Psych-normal affect, normal mood Results & Data Results & Data Vital Signs (Past 12 Hours) Vital Signs Temp Pulse Pulse Resp BP BP Pulse Ox 09/13/24 10:49 36.6 C 106 H 18 102/71 96 09/13/24 10:00 99 H 09/13/24 10:00 09/13/24 07:55 36.5 C 107 H 18 84/58 L 96 09/13/24 07:00 93/67 L 09/13/24 03:24 36.6 C 107 H 16 106/68 93 O2 Del Method O2 Flow Rate 09/13/24 10:49 Nasal Cannula 10 09/13/24 10:00 09/13/24 10:00 Nasal Cannula 10 09/13/24 07:55 Nasal Cannula 10 09/13/24 07:00 09/13/24 03:24 High Flow Nasal Cannula 10 Laboratory Results 09/12/24 20:17 09/13/24 07:07 PG Care Time/CCT Total # of Minutes Spent Total Time Spent with Patient: Total time spent is greater than 50% in coordination of care (as documented) at patient's floor/unit and/or counseling patient: Coding Level of Care Code 76136 SUB INP/OBS CARE 3/50MIN Diagnoses Acute on chronic respiratory failure with hypoxia and hypercapnia J96.21; J96.22 Acute on chronic systolic heart failure I50.23 Candidiasis of mouth and esophagus B37.81; B37.0 Dilated cardiomyopathy I42.0 COPD (chronic obstructive pulmonary disease) J44.9 Hypertension I10 Type 2 diabetes mellitus E11.9 Current smoker F17.200
[2024-09-13] MEDS ORDERED: LANTUS PER UNIT CHARGE SQ SCH (21:00)
[2024-09-14 06:37] LABS: Hematocrit (blood only) 35.4 % (37.0-47.0); Hemoglobin 10.8 g/dl (12.0-16.0); Mean Corpuscular Hemoglobin 26.3 pg (25.0-34.0); Mean Corpuscular Volume 86.1 fL (80.0-100.0); Platelet Count 201 K/uL (130-400); RDW Standard Deviation 53.0 fL (36.4-46.3); Red Blood Count 4.11 M/uL (4.20-5.40); White Blood Count 7.02 K/ul (4.8-10.8)
[2024-09-14 06:56] LABS: Anion Gap 5.0 (3-11); Blood Urea Nitrogen 20.0 mg/dl (6-23); Calcium 8.7 mg/dl (8.6-10.3); Carbon Dioxide 36.0 mmol/L (21-32); Chloride 100.0 mmol/L (98-107); Creatinine Clr Calc Pharmacy 56.9 ml/min; Glucose 192.0 mg/dl (70-99(Fasting)); Magnesium 1.8 mg/dl (1.7-2.4); Potassium 3.5 mmol/L (3.5-5.1); Sodium 141.0 mmol/L (136-145)
[2024-09-14 06:59] LABS: Immature Granulocytes # (auto) 0.01 K/uL (0.01-0.20); Immature Granulocytes % (auto) 0.1 %
--- NOTE | 2024-09-14 08:11 | XRay Report ---
EXAM: XR chest 1V portable CLINICAL HISTORY: CHF TECHNIQUE: An X-ray image of the chest is obtained in AP projection. COMPARISON: 09/12/2024. FINDINGS: Pulmonary Parenchyma: Left lower and middle zone opacification suggesting moderate left pleural effusion, interval increased. Interval demonstration of right lower zone opacity suggesting mild pleural effusion. Unchanged prominent bilateral parahilar markings likely congestion. Heart and Mediastinum: Moderate cardiomegaly. No mediastinal widening or masses. No hilar or mediastinal lymphadenopathy. Bony Thorax: Bony thorax appears intact without fractures or deformities. Soft Tissues: Soft tissues overlying the chest wall are unremarkable. IMPRESSION: 1. Interval increase of moderate left pleural effusion and new finding of mild right pleural effusion. 2. Unchanged prominent bilateral parahilar markings likely congestion. 3. Moderate cardiomegaly. Electronically signed by Rafal Prescott 09-14-2024 08:11 AM
--- NOTE | 2024-09-14 11:00 | Hospitalist Progress Note ---
Date of Service September 14, 2024 Assessment & Plan (1) Acute on chronic respiratory failure with hypoxia and hypercapnia: Plan: Supplemental oxygen per nasal cannula to keep saturations 90 to 92%. Avoid high oxygen saturations to prevent further CO2 retention. Wean to usual levels as tolerated. (2) Acute on chronic systolic heart failure: Plan: Diuresis has slowed due to hypotension. Continue parenteral Lasix. Chest x-ray done today, September 14, looks somewhat worse with increasing size of pleural effusions. Will repeat chest x-ray again tomorrow, September 15. (3) Hypotension: Plan: Midodrine started for systemic hypotension. Hopefully we can avoid inotropic support. (4) Candidiasis of mouth and esophagus: Plan: Probably due to recent steroid therapy coupled with diabetes. Improving with nystatin swish and swallow (5) Dilated cardiomyopathy: Plan: Known ejection fraction of 15% per recent echo. Continue current medical management (6) COPD (chronic obstructive pulmonary disease): Plan: With chronic respiratory failure. Treat underlying CHF. Continue current medical management (7) Hypertension: Plan: Blood pressure is low currently. Midodrine has been started. Metoprolol dosage has been increased if tolerated. Will follow (8) Type 2 diabetes mellitus: Plan: NPH insulin twice daily. Sliding scale coverage as needed. ADA diet (9) Current smoker: Plan: Smoking cessation has been highly recommended to the patient Plan To be determined by clinical response to treatment Admission and Anticipated Discharge Date Admission Date: September 12, 2024 Subjective Alert and oriented. No distress. Blood pressure is running low and midodrine has been added for blood pressure support. Potassium dosage uptitrated to twice daily dosing due to borderline low potassium levels. Review of Systems 2 Review of Systems: Constitutionalno fever or chills. Recent weight gain and worsening peripheral edema ENTno blurred vision, no double vision, no epistaxis, no sore throat Respiratoryno cough, no wheezing. She has noted recent orthopnea and dyspnea on exertion Cardiacno palpitations, no chest pain, no syncope Brayden nausea, vomiting, diarrhea, melena, hematochezia GUno urinary retention, no urinary incontinence, no dysuria, no hematuria Musculoskeletalno joint pain, no muscle tenderness. She has noticed a worsening lower extremity edema bilaterally Skinno bruising, no rashes, no pruritus Neurono isolated weakness, no paresthesia, no weakness Psychno depression, no anxiety Physical Exam 2 Physical Exam: General-alert and oriented x3, no fever, no chills HEENT-head atraumatic and normocephalic, pupils equal and reactive to light, extraocular muscles intact. Oral thrush noted Neck-no lymphadenopathy or thyromegaly, trachea midline Chest-bibasilar inspiratory rales. No rhonchi. No wheeze Cardiac-regular rate and rhythm, normal S1 and S2 Abdomen-normal bowel sounds, no hepatosplenomegaly Extremities-2+ pitting edema bilateral lower extremities below the knees Neuro-cranial nerves II through XII intact, motor and sensory function within normal limits, strength symmetrical, no focal deficits Psych-normal affect, normal mood Results & Data Results & Data Vital Signs (Past 12 Hours) Vital Signs Temp Pulse Pulse Resp BP Pulse Ox O2 Del Method 09/14/24 10:57 36.3 C L 111 H 20 91/64 L 93 Nasal Cannula 09/14/24 07:47 36.3 C L 99 H 18 74/50 L 94 Nasal Cannula 09/14/24 03:13 36.6 C 91 H 17 85/58 L 92 High Flow Nasal Cannula 09/14/24 00:59 105 H 09/13/24 23:36 36.9 C 88 17 86/63 L 95 High Flow Nasal Cannula O2 Flow Rate 09/14/24 10:57 09/14/24 07:47 09/14/24 03:13 5 09/14/24 00:59 09/13/24 23:36 5 Laboratory Results 09/14/24 05:48 09/14/24 05:48 PG Care Time/CCT Total # of Minutes Spent Total Time Spent with Patient: Total time spent is greater than 50% in coordination of care (as documented) at patient's floor/unit and/or counseling patient: Coding Level of Care Code 82623 SUB INP/OBS CARE 3/50MIN Diagnoses Acute on chronic respiratory failure with hypoxia and hypercapnia J96.21; J96.22 Acute on chronic systolic heart failure I50.23 Hypotension I95.9 Candidiasis of mouth and esophagus B37.81; B37.0 Dilated cardiomyopathy I42.0 COPD (chronic obstructive pulmonary disease) J44.9 Hypertension I10 Type 2 diabetes mellitus E11.9 Current smoker F17.200
[2024-09-14] MEDS: MIDODRINE HCL 2.5 MG TAB PO SCH (11:18)
[2024-09-14] MEDS: POTASSIUM CHLORIDE CRTAB 20 MEQ TABCR PO SCH (11:18)
[2024-09-15 06:09] LABS: Hematocrit (blood only) 36.1 % (37.0-47.0); Hemoglobin 10.9 g/dl (12.0-16.0); Immature Granulocytes # (auto) 0.02 K/uL (0.01-0.20); Immature Granulocytes % (auto) 0.3 %; Mean Corpuscular Hemoglobin 26.0 pg (25.0-34.0); Mean Corpuscular Volume 86.0 fL (80.0-100.0); Platelet Count 218 K/uL (130-400); RDW Standard Deviation 52.7 fL (36.4-46.3); Red Blood Count 4.20 M/uL (4.20-5.40); White Blood Count 5.88 K/ul (4.8-10.8)
[2024-09-15 06:22] LABS: Anion Gap 4.0 (3-11); Calcium 8.7 mg/dl (8.6-10.3); Carbon Dioxide 36.0 mmol/L (21-32); Chloride 101.0 mmol/L (98-107); Magnesium 1.9 mg/dl (1.7-2.4); Potassium 4.1 mmol/L (3.5-5.1); Sodium 141.0 mmol/L (136-145)
[2024-09-15] MEDS: CARBOHYDRATES FOR HYPOGLYCEMIA PO PRN (06:36)
[2024-09-15 06:37] LABS: Blood Urea Nitrogen 23.0 mg/dl (6-23); Creatinine Clr Calc Pharmacy 54.2 ml/min; Glucose 52.0 mg/dl (70-99(Fasting))
--- NOTE | 2024-09-15 07:39 | XRay Report ---
EXAM: XR chest 1V portable CLINICAL HISTORY: CHF TECHNIQUE: X-ray image of the chest obtained in 1 frontal projection. COMPARISON: Prior X-ray dated 09/14/2024 for comparison. FINDINGS: Pulmonary Parenchyma: Unchanged mild right and moderate left pleural effusion. Mild interval regression of air space opacification in underlying parenchyma. Heart and Mediastinum: Cardiomegaly. No mediastinal widening or masses. No hilar or mediastinal lymphadenopathy. Bony Thorax: Bony thorax appears intact without fractures or deformities. Soft Tissues: Soft tissues overlying the chest wall are unremarkable. IMPRESSION: 1. Unchanged mild right and moderate left pleural effusion. 2. Mild interval regression of air space opacification in underlying parenchyma. 3. Cardiomegaly. Electronically signed by Rafal Prescott 09-15-2024 07:38 AM
--- NOTE | 2024-09-15 09:57 | Cardiology Consultation ---
Date of Consultation September 15, 2024 Assessment & Plan (1) Acute exacerbation of CHF (congestive heart failure): (2) Hypotension: (3) Cardiomyopathy: (4) LBBB (left bundle branch block): Plan 1. Congestive heart failure: Her acute presentation appears to be due to not taking a diuretic for several days in association with her underlying cardiomyopathy. Possibly excessive fluid intake as well. 2. Hypotension: Unfortunately with her severe cardiomyopathy hypotension has l imited both the use of heart failure medications and diuresis. She is now on midodrine, today's blood pressure is little higher so perhaps that will help. I would continue the metoprolol succinate since her heart rate is quite elevated, even if we have to lower the dose below what we are giving now. We also need to continue with gentle diuresis. 3. Cardiomyopathy: She has a severe cardiomyopathy, the etiology is not clear but it is likely nonischemic. She will need some sort of ischemic evaluation (ideally a catheterization, or possibly a nuclear study). Unfortunately we have not been able to use proper medical therapy due to hypotension. She is currently on metoprolol succinate 12.5 mg twice a day, although that may be held from time to time, and no other heart failure medications. We should probably consider spironolactone and Farxiga. I am going to start them today, hopefully they will not affect blood pressure significantly. 4. Left bundle branch block: She has developed a left bundle branch block over the last several years based on electrocardiograms that we have. Her QRS duration is now greater than 120 ms (although not a lot over), it is possible that this has contributed to her cardiomyopathy. Biventricular pacing with a biventricular ICD might be a consideration. Even though the QRS is not terribly wide it does appear to be a left bundle pattern and resynchronization can sometimes yield dramatic results. We should first determine whether she has had an anterior myocardial infarction however, which would be the other possibility for her left bundle branch pattern. I did discuss this with her and she is willing to consider this, she does want to get better if possible. I did discuss with Dr. Kramer the possibility of catheterization, he agrees we should do that and I will probably arrange in the next few days depending on how she does with diuresis.. History of Present Illness Reason for Consultation: CHF, cardiomyopathy Attending Physician: Sae Benton MD History of Present Illness This is a 64-year-old woman who is reported to have a history of heart disease although I do not find many details in the record. She tells me that she first heard about it in the early part of this year, when she developed worsening of her shortness of breath, and was not aware of heart disease prior to that. She was followed elsewhere however more recently she was evaluated by Dr. Farfan here on August 07, 2024 for shortness of breath (she also has COPD) and was observed to have severe left ventricular dysfunction on echocardiography with an ejection fraction of 15 to 20%. She also had evidence of right ventricular failure. It is thought to be nonischemic although she does have risk factors for coronary artery disease, and future evaluation for that was planned. There is no clear reversible cause for her cardiomyopathy identified. She was discharged on August 08, 2024 after diuresis, however her blood pressure was very low therefore heart failure medications could not be used effectively. She was discharged on furosemide and atorvastatin but no other cardiac medications. She did see Dr. Moncada in [place] and I believe has a catheterization scheduled for September. She then presented to the emergency room on September 12, 2024 with shortness of breath. Evidently she ran out of her Lasix 3 days before that visit and noted worsening shortness of breath and lower extremity edema. She has been diuresed but her blood pressure dropped and she has been started on midodrine. She is also on metoprolol succinate 12.5 mg twice a day but no other heart failure med ications. At the time my evaluation she is sitting on her bed, she notes that she gets quite short of breath if she tries to lay supine or even at about 30 degrees upright. She has not been ambulating. She does not have chest discomfort, she is aware of her cardiac diagnosis but does not know her history in detail. She has no lightheadedness, dizziness or palpitations currently. Allergies Allergy/AdvReac Type Severity Reaction Status Date / Time codeine Allergy Severe Hives Verified 09/12/24 21:51 Penicillins Allergy Severe Hives Verified 09/12/24 21:51 thiopental [From Pentothal] AdvReac Unknown awareness Verified 09/12/24 21:51 under anesthesia Home Medications Medication Instructions Recorded Confirmed Type atorvastatin 20 mg tablet 20 mg PO QAM 08/22/22 09/12/24 History quetiapine 100 mg tablet (Seroquel) 100 mg PO HS 08/22/22 09/12/24 History Oxygen Home 08/27/22 10/17/22 History albuterol sulfate 2.5 mg/3 mL 2.5 mg inhalation Q4H PRN 08/27/22 09/12/24 History (0.083 %) solution for nebulization Shortness Of Breath Or Wheezing albuterol sulfate 90 mcg/actuation 2 inh inhalation Q6H PRN Shortness 08/27/22 09/12/24 History breath activated powder inhaler Of Breath Or Wheezing aspirin 81 mg tablet,delayed 81 mg PO DAILY 08/06/24 09/12/24 History release pantoprazole 40 mg tablet,delayed 40 mg PO QAM 08/06/24 09/12/24 History release quetiapine 25 mg tablet 25 mg PO QDL PRN ONLY IF NEEDED 08/06/24 09/12/24 History PER PT. quetiapine 50 mg tablet 50 mg PO QDL PRN ONLY IF NEEDED 08/06/24 09/12/24 History PER PT docusate sodium 100 mg capsule 100 mg PO BID #0 caps 08/08/24 09/12/24 Rx polyethylene glycol 3350 17 gram 17 g PO BID #0 ea 08/08/24 09/12/24 Rx oral powder packet (Miralax) furosemide 40 mg tablet (Lasix) 40 mg PO BID 09/12/24 09/12/24 History insulin glargine 100 unit/mL (3 20 unit subcut HS 09/12/24 09/12/24 History mL) subcutaneous pen (Lantus Solostar U-100 Insulin) metoprolol succinate 25 mg 12.5 mg PO DAILY 09/12/24 09/12/24 History tablet,extended release 24 hr Patient History Medical History Systolic CHF EF 15-20%, echo 07/2024 Chronic hypoxic respiratory failure on home O2, 3 liters continuously Dilated cardiomyopathy Biventricular failure Asthma High cholesterol Adverse reaction to anesthetic agent 43 yrs ago, sodium pentothal- Stopped breathing Could hear and see everything Osteoarthritis Diabetic neuropathy COPD (chronic obstructive pulmonary disease) uses inhalers daily Hypertension no meds at this time Diabetes Type 2 diabetes mellitus Chronic cough GERD (gastroesophageal reflux disease) Current smoker 2 pack per day smoker On home oxygen therapy 3 liters continuously Surgical History H/O umbilical hernia repair (09/10/22) Umbilical hernia repair. Dr. Perez History of appendectomy History of x 2 Family History Mother , age 58 CHF (congestive heart failure) Diabetes Heart disease Stroke Sister Cancer Diabetes Lung disease Father , age 59 Diabetes Heart disease Valvular heart disease Social History Smoking Status: Current every day smoker Tobacco Type: Cigarettes Age Started Using Tobacco: 13; packs per day: 2; Second Hand Exposure: Yes; Do You Dip or Chew Tobacco: No; Hx Alcohol Use: No Hx Substance Use: No Preferred Language: Croatian Communication Ability: Effective Visual Impairment: No Limitations Audit Manager Required: No Beliefs That Will Affect Care: None marital status: Current Living Situation: Spouse How many Children do You have: 6 How many Children do You have Comment: 2 biological children; 4 step-children Other Information That Helps Us Care for You: No Feels Safe at Home: Yes Safety Concerns: Feels Safe At This Time Diet: diabetic during the past year weight has: remained stable Assistive Devices: Oxygen - Continuous and Walker Review of Systems Review of Systems: All systems reviewed & are unremarkable except as noted in HPI & below Results & Data Vital Signs (Past 12 Hours) Vital Signs Temp Pulse Pulse Resp BP Pulse Ox O2 Del Method 09/15/24 07:55 36.4 C L 102 H 14 108/76 96 Nasal Cannula 09/15/24 03:36 36.3 C L 95 H 18 88/64 L 93 Nasal Cannula 09/14/24 23:20 36.5 C 106 H 20 93/67 L 95 Nasal Cannula 09/14/24 23:00 103 H O2 Flow Rate 09/15/24 07:55 7 09/15/24 03:36 6.0 09/14/24 23:20 6.0 09/14/24 23:00 Laboratory Results CBC 09/15/24 Range/Units 05:39 WBC 5.88 (4.8-10.8) K/ul RBC 4.20 (4.20-5.40) M/uL Hgb 10.9 L (12.0-16.0) g/dl Hct 36.1 L (37.0-47.0) % Plt Count 218 (130-400) K/uL Neut # (Auto) 3.74 (1.40-6.50) K/uL Lymph # (Auto) 1.40 (1.20-3.40) K/uL [place] # (Auto) 0.63 H (0.11-0.59) K/uL Eos # (Auto) 0.04 (0.00-0.50) K/uL Baso # (Auto) 0.05 (0.00-0.20) K/uL Comprehensive Metabolic Panel 09/15/24 Range/Units 05:39 Sodium 141 (136-145) mmol/L Potassium 4.1 (3.5-5.1) mmol/L Chloride 101 (98-107) mmol/L Carbon Dioxide 36 H (21-32) mmol/L BUN 23 (6-23) mg/dl Creatinine 0.96 (0.6-1.2) mg/dl Glucose 52 L* (70-99(Fasting)) mg/dl Calcium 8.7 (8.6-10.3) mg/dl Intake and Output 09/14/24 09/15/24 09/15/24 22:59 06:59 14:59 Intake Total 270 / 550 50 / 550 Output Total 450 / 1200 450 / 1200 Balance -180 / -650 -400 / -650 Intake: Oral 270 / 550 50 / 550 Output: Urine 450 / 1200 450 / 1200 Other: Weight 74.9 kg Weight Measurement Method Standing Scale Diagnostic Findings Telemetry: Sinus rhythm and sinus tachycardia, no other arrhythmia. ECG: September 12, 2024 shows sinus tachycardia with a left bundle type IVCD and a QRS duration of just about 120 ms, prior electrocardiograms since 2022 show a QRS duration of over 120 ms consistent with left bundle branch block. August 22, 2022 her electrocardiogram showed poor R wave progression but a QRS duration of less than 100 ms. PG Care Time/CCT Total # of Minutes Spent Total Time Spent with Patient: Total time spent is greater than 50% in coordination of care (as documented) at patient's floor/unit and/or counseling patient: Coding Level of Care Code 15700 INT INP/OBS CARE MIN Diagnoses Acute exacerbation of CHF (congestive heart failure) I50.9 Hypotension I95.9 Cardiomyopathy I42.9 LBBB (left bundle branch block) I44.7
[2024-09-15] MEDS: EMPAGLIFLOZIN 10 MG TAB PO SCH (12:33)
[2024-09-15] MEDS: SPIRONOLACTONE 25 MG TAB PO SCH (12:37)
--- NOTE | 2024-09-15 14:41 | Hospitalist Progress Note ---
Date of Service September 15, 2024 Assessment & Plan (1) Acute on chronic respiratory failure with hypoxia and hypercapnia: Plan: Supplemental oxygen per nasal cannula to keep saturations 90 to 92%. Avoid high oxygen saturations to prevent further CO2 retention. Wean to usual levels as tolerated. (2) Acute on chronic systolic heart failure: Plan: Appreciate cardiology consultation and recommendations. She has been started on spironolactone and Jardiance. Biventricular pacemaker is being considered. She will eventually need an ischemic workup. Continue parenteral Lasix. Chest x- ray done today, September 15, looks better to me. (3) Hypotension: Plan: Midodrine appears to have helped. Cardiology has started her on spironolactone and Jardiance. (4) Candidiasis of mouth and esophagus: Plan: Probably due to recent steroid therapy coupled with diabetes. Improving with nystatin swish and swallow (5) Dilated cardiomyopathy: Plan: Known ejection fraction of 15% per recent echo. Appreciate cardiology consultation recommendations. Biventricular pacing is being considered. She will eventually need an ischemic evaluation. (6) COPD (chronic obstructive pulmonary disease): Plan: With chronic respiratory failure. Treat underlying CHF. Continue current medical management (7) Hypertension: Plan: Blood pressure is low but acceptable with midodrine. Metoprolol dosage could be down titrated if needed. Will follow (8) Type 2 diabetes mellitus: Plan: NPH insulin placed on hold due to hypoglycemia this morning, September 15. Continue sliding scale coverage as needed. ADA diet (9) Current smoker: Plan: Smoking cessation has been highly recommended to the patient Plan To be determined by clinical response to treatment Admission and Anticipated Discharge Date Admission Date: September 12, 2024 Subjective Alert and oriented. No distress. Blood pressure remains in an acceptable range with addition of midodrine. Cardiology consultation noted. She has been started on spironolactone and Jardiance. Insulin therapy is on hold due to hypoglycemia which occurred this morning, September 15. Chest x-ray done today, September 15, looks better. Potassium corrected to 4.1. Review of Systems 2 Review of Systems: Constitutionalno fever or chills. Recent weight gain and worsening peripheral edema ENTno blurred vision, no double vision, no epistaxis, no sore throat Respiratoryno cough, no wheezing. She has noted recent orthopnea and dyspnea on exertion Cardiacno palpitations, no chest pain, no syncope Brayden nausea, vomiting, diarrhea, melena, hematochezia GUno urinary retention, no urinary incontinence, no dysuria, no hematuria Musculoskeletalno joint pain, no muscle tenderness. She has noticed a worsening lower extremity edema bilaterally Skinno bruising, no rashes, no pruritus Neurono isolated weakness, no paresthesia, no weakness Psychno depression, no anxiety Physical Exam 2 Physical Exam: General-alert and oriented x3, no fever, no chills HEENT-head atraumatic and normocephalic, pupils equal and reactive to light, extraocular muscles intact. Oral thrush noted Neck-no lymphadenopathy or thyromegaly, trachea midline Chest-bibasilar inspiratory rales. No rhonchi. No wheeze Cardiac-regular rate and rhythm, normal S1 and S2 Abdomen-normal bowel sounds, no hepatosplenomegaly Extremities-2+ pitting edema bilateral lower extremities below the knees Neuro-cranial nerves II through XII intact, motor and sensory function within normal limits, strength symmetrical, no focal deficits Psych-normal affect, normal mood Results & Data Results & Data Vital Signs (Past 12 Hours) Vital Signs Temp Pulse Resp BP Pulse Ox O2 Del Method O2 Flow Rate 09/15/24 12:27 36.4 C L 90 18 88/86 L 93 Nasal Cannula 09/15/24 09:35 96/68 L 09/15/24 07:55 36.4 C L 102 H 14 108/76 96 Nasal Cannula 7 09/15/24 03:36 36.3 C L 95 H 18 88/64 L 93 Nasal Cannula 6.0 Laboratory Results 09/15/24 05:39 09/15/24 05:39 PG Care Time/CCT Total # of Minutes Spent Total Time Spent with Patient: Total time spent is greater than 50% in coordination of care (as documented) at patient's floor/unit and/or counseling patient: Coding Level of Care Code 06080 SUB INP/OBS CARE 3/50MIN Diagnoses Acute on chronic respiratory failure with hypoxia and hypercapnia J96.21; J96.22 Acute on chronic systolic heart failure I50.23 Hypotension I95.9 Candidiasis of mouth and esophagus B37.81; B37.0 Dilated cardiomyopathy I42.0 COPD (chronic obstructive pulmonary disease) J44.9 Hypertension I10 Type 2 diabetes mellitus E11.9 Current smoker F17.200
--- NOTE | 2024-09-15 15:33 | Electrocardiogram Report ---
Test Reason : Blood Pressure : */* mmHG Vent. Rate : 114 BPM Atrial Rate : 114 BPM P-R Int : 154 ms QRS Dur : 120 ms QT Int : 356 ms P-R-T Axes : 74 167 31 degrees QTcB Int : 490 ms Sinus tachycardia with Fusion complexes Low voltage QRS Left bundle branch block Abnormal ECG When compared with ECG of 06-Aug-2024 14:30, No significant change was found Confirmed by oYan Navarrete ([id number]) on 09/15/2024 3:33:34 PM Referred By: Adrienne Malone Confirmed By: Yoan Navarrete
[2024-09-16 06:17] LABS: Hematocrit (blood only) 36.5 % (37.0-47.0); Hemoglobin 11.6 g/dl (12.0-16.0); Immature Granulocytes # (auto) 0.02 K/uL (0.01-0.20); Immature Granulocytes % (auto) 0.3 %; Mean Corpuscular Hemoglobin 27.0 pg (25.0-34.0); Mean Corpuscular Volume 84.9 fL (80.0-100.0); Platelet Count 218 K/uL (130-400); RDW Standard Deviation 53.5 fL (36.4-46.3); Red Blood Count 4.30 M/uL (4.20-5.40); White Blood Count 6.39 K/ul (4.8-10.8)
[2024-09-16 06:42] LABS: Anion Gap 6.0 (3-11); Blood Urea Nitrogen 25.0 mg/dl (6-23); Calcium 9.1 mg/dl (8.6-10.3); Carbon Dioxide 34.0 mmol/L (21-32); Chloride 101.0 mmol/L (98-107); Creatinine Clr Calc Pharmacy 53.4 ml/min; Glucose 138.0 mg/dl (70-99(Fasting)); Potassium 4.7 mmol/L (3.5-5.1); Sodium 141.0 mmol/L (136-145)
--- NOTE | 2024-09-16 08:37 | Cardiology Progress Note ---
Date of Service September 16, 2024 Assessment & Plan (1) Acute exacerbation of CHF (congestive heart failure): (2) Hypotension: (3) Cardiomyopathy: (4) LBBB (left bundle branch block): Plan 1. Congestive heart failure: Her acute presentation appears to be due to not taking a diuretic for several days in association with her underlying cardiomyopathy. Possibly excessive fluid intake as well. This appears to be gradually improving although she is still in significant heart failure and has excess fluid. Her weight has not decreased appreciably since admission, we need to continue with diuresis but it may be a slow process. 2. Hypotension: Unfortunately with her severe cardiomyopathy hypotension has limited both the use of heart failure medications and diuresis. She is now on midodrine, her blood pressure fluctuates and runs a little low at times but she is asymptomatic and this is acceptable. I would continue the metoprolol succinate since her heart rate is quite elevated, hopefully we can very gradually increase that but that will likely be as an outpatient. We also need to continue with gentle diuresis. 3. Cardiomyopathy: She has a severe cardiomyopathy, the etiology is not clear but it is likely nonischemic. She will need some sort of ischemic evaluation (ideally a catheterization, or possibly a nuclear study). Unfortunately we have not been able to use proper medical therapy due to hypotension. She is currently on metoprolol succinate 25 mg daily, and I started Jardiance and spironolactone yesterday which she is tolerating. Her potassium was low on presentation but has been climbing, I am going to hold her potassium until we see the effect of spironolactone. 4. Left bundle branch block: She has developed a left bundle branch block over the last several years based on electrocardiograms that we have. Her QRS duration is now greater than 120 ms (although not a lot over), it is possible that this has contributed to her cardiomyopathy. Biventricular pacing with a biventricular ICD might be a consideration. Even though the QRS is not terribly wide it does appear to be a left bundle pattern and resynchronization can sometimes yield dramatic results. We should first determine whether she has had an anterior myocardial infarction however, which would be the other possibility for her left bundle branch pattern. I did discuss this with her and she is willing but is concerned about laying supine. I did discuss with Dr. Kramer the possibility of catheterization, he agrees we should do that. I am going to tentatively plan on tomorrow although if she remains fluid overloaded we may have to postpone. I will make her n.p.o. Admission and Anticipated Discharge Date Admission Date: September 12, 2024 Subjective She is feeling somewhat better today, less short of breath but still very short of breath when walking to the bathroom or when trying not to use oxygen. She feels her legs have improved although are still edematous. No exertional chest discomfort. Physical Exam Physical Exam: Constitutional: Alert, cooperative and in no distress. She appears a little breathless but just returned from the bathroom. HEENT: Unremarkable, nasal O2 Neck: No jugular venous distention, carotid pulses are somewhat rapid but normal and equal bilaterally without bruits. Pulmonary: Bilateral rales on auscultation. Cardiac: Regular rapid rhythm with no murmur, gallop or rub. Abdomen: Soft, nontender with normal bowel sounds. Extremities: +2-3 bilateral pretibial edema. Neurologic: No focal findings. Gait is steady. Skin: No rash, ecchymoses or petechiae. Results & Data Vital Signs (Past 12 Hours) Vital Signs Temp Pulse Pulse Resp BP Pulse Ox O2 Del Method 09/16/24 07:34 36.8 C 106 H 20 90/66 L 93 Nasal Cannula 09/16/24 03:47 36.7 C 97 H 18 90/61 L 92 Nasal Cannula 09/16/24 02:02 113 H 09/16/24 02:00 09/15/24 23:37 36.7 C 103 H 18 93/66 L 91 Nasal Cannula O2 Del Method O2 Flow Rate O2 Flow Rate 09/16/24 07:34 5 09/16/24 03:47 5.0 09/16/24 02:02 09/16/24 02:00 Nasal Cannula 5 09/15/24 23:37 5.0 Laboratory Results CBC 09/16/24 Range/Units 05:24 WBC 6.39 (4.8-10.8) K/ul RBC 4.30 (4.20-5.40) M/uL Hgb 11.6 L (12.0-16.0) g/dl Hct 36.5 L (37.0-47.0) % Plt Count 218 (130-400) K/uL Neut # (Auto) 3.99 (1.40-6.50) K/uL Lymph # (Auto) 1.66 (1.20-3.40) K/uL [place] # (Auto) 0.61 H (0.11-0.59) K/uL Eos # (Auto) 0.06 (0.00-0.50) K/uL Baso # (Auto) 0.05 (0.00-0.20) K/uL Comprehensive Metabolic Panel 09/16/24 Range/Units 05:24 Sodium 141 (136-145) mmol/L Potassium 4.7 (3.5-5.1) mmol/L Chloride 101 (98-107) mmol/L Carbon Dioxide 34 H (21-32) mmol/L BUN 25 H (6-23) mg/dl Creatinine 0.97 (0.6-1.2) mg/dl Glucose 138 H (70-99(Fasting)) mg/dl Calcium 9.1 (8.6-10.3) mg/dl Intake and Output 09/15/24 09/16/24 09/16/24 22:59 06:59 14:59 Intake Total 50 / 270 100 / 270 Output Total 500 / 1150 650 / 1150 Balance -450 / -880 -550 / -880 Intake: Oral 50 / 270 100 / 270 Output: Urine 500 / 1150 650 / 1150 Other: Weight 74.2 kg Weight Measurement Method Standing Scale Diagnostic Findings Telemetry: Sinus rhythm and sinus tachycardia, average rate about 100, very little diurnal heart rate variation with her nocturnal rate being very similar to her daytime rate. Consistent with a high catecholamine state. PG Care Time/CCT Total # of Minutes Spent Total Time Spent with Patient: Total time spent is greater than 50% in coordination of care (as documented) at patient's floor/unit and/or counseling patient: Coding Level of Care Code 15464 SUB INP/OBS CARE 3/50MIN Diagnoses Acute exacerbation of CHF (congestive heart failure) I50.9 Hypotension I95.9 Cardiomyopathy I42.9 LBBB (left bundle branch block) I44.7
--- NOTE | 2024-09-16 12:28 | Hospitalist Progress Note ---
Date of Service September 16, 2024 Assessment & Plan (1) Acute on chronic respiratory failure with hypoxia and hypercapnia: Plan: Supplemental oxygen per nasal cannula to keep saturations 90 to 92%. Avoid high oxygen saturations to prevent further CO2 retention. Wean to usual levels as tolerated. Treat underlying CHF (2) Acute on chronic systolic heart failure: Plan: Appreciate cardiology consultation and recommendations. She has been started on spironolactone and Jardiance. Biventricular pacemaker is being considered. Left heart catheterization has tentatively been scheduled for tomorrowSeptember 17. Continue parenteral Lasix. Will repeat chest x-ray again tomorrowSeptember 17 (3) Hypotension: Plan: Midodrine appears to have helped. Blood pressure is low normal but acceptable. Cardiology has started her on spironolactone and Jardiance. (4) Candidiasis of mouth and esophagus: Plan: Probably due to recent steroid therapy coupled with diabetes. Resolving with nystatin swish and swallow (5) Dilated cardiomyopathy: Plan: Known ejection fraction of 15% per recent echo. Appreciate cardiology consultation recommendations. Biventricular pacing is being considered. Left heart catheterization is scheduled for tomorrSeptember 17 (6) COPD (chronic obstructive pulmonary disease): Plan: With chronic respiratory failure. Treat underlying CHF. Continue current medical management (7) Hypertension: Plan: Blood pressure is low but acceptable with midodrine. Metoprolol dosage could be down titrated if needed. Will follow (8) Type 2 diabetes mellitus: Plan: NPH insulin placed on hold due to hypoglycemia on the morning of September 15. Glucose 138 this morning, September 16. Continue sliding scale coverage as needed. ADA diet (9) Current smoker: Plan: Smoking cessation has been highly recommended to the patient Plan To be determined by clinical response to treatment. Hopefully she will eventually be able to return home Admission and Anticipated Discharge Date Admission Date: September 12, 2024 Subjective Alert and oriented. No distress. Cardiology entry noted. She has been started on spironolactone and empagliflozin. Cardiac catheterization to rule out underlying ischemic heart disease blood pressure is low but acceptable. Will repeat chest x-ray again tomorrow, September 17. She did diurese nearly a liter of fluid yesterday, September 15. Will be planned for tomorrowSeptember 17. Review of Systems 2 Review of Systems: Constitutionalno fever or chills. Recent weight gain and worsening peripheral edema ENTno blurred vision, no double vision, no epistaxis, no sore throat Respiratoryno cough, no wheezing. She has noted recent orthopnea and dyspnea on exertion Cardiacno palpitations, no chest pain, no syncope Brayden nausea, vomiting, diarrhea, melena, hematochezia GUno urinary retention, no urinary incontinence, no dysuria, no hematuria Musculoskeletalno joint pain, no muscle tenderness. She has noticed a worsening lower extremity edema bilaterally Skinno bruising, no rashes, no pruritus Neurono isolated weakness, no paresthesia, no weakness Psychno depression, no anxiety Physical Exam 2 Physical Exam: General-alert and oriented x3, no fever, no chills HEENT-head atraumatic and normocephalic, pupils equal and reactive to light, extraocular muscles intact. Oral thrush noted Neck-no lymphadenopathy or thyromegaly, trachea midline Chest-bibasilar inspiratory rales. No rhonchi. No wheeze Cardiac-regular rate and rhythm, normal S1 and S2 Abdomen-normal bowel sounds, no hepatosplenomegaly Extremities-2+ pitting edema bilateral lower extremities below the knees Neuro-cranial nerves II through XII intact, motor and sensory function within normal limits, strength symmetrical, no focal deficits Psych-normal affect, normal mood Results & Data Results & Data Vital Signs (Past 12 Hours) Vital Signs Temp Pulse Pulse Resp BP Pulse Ox O2 Del Method 09/16/24 11:38 104 H 19 103/70 93 High Flow Nasal Cannula 09/16/24 07:34 36.8 C 106 H 20 90/66 L 93 Nasal Cannula 09/16/24 03:47 36.7 C 97 H 18 90/61 L 92 Nasal Cannula 09/16/24 02:02 113 H 09/16/24 02:00 O2 Del Method O2 Flow Rate O2 Flow Rate 09/16/24 11:38 5 09/16/24 07:34 5 09/16/24 03:47 5.0 09/16/24 02:02 09/16/24 02:00 Nasal Cannula 5 Laboratory Results 09/16/24 05:24 09/16/24 05:24 PG Care Time/CCT Total # of Minutes Spent Total Time Spent with Patient: Total time spent is greater than 50% in coordination of care (as documented) at patient's floor/unit and/or counseling patient: Coding Level of Care Code 24163 SUB INP/OBS CARE 350MIN Diagnoses Acute on chronic respiratory failure with hypoxia and hypercapnia J96.21; J96.22 Acute on chronic systolic heart failure I50.23 Hypotension I95.9 Candidiasis of mouth and esophagus B37.81; B37.0 Dilated cardiomyopathy I42.0 COPD (chronic obstructive pulmonary disease) J44.9 Hypertension I10 Type 2 diabetes mellitus E11.9 Current smoker F17.200
[2024-09-17 06:14] LABS: Anion Gap 8.0 (3-11); Blood Urea Nitrogen 28.0 mg/dl (6-23); Calcium 9.0 mg/dl (8.6-10.3); Carbon Dioxide 37.0 mmol/L (21-32); Chloride 96.0 mmol/L (98-107); Creatinine Clr Calc Pharmacy 52.9 ml/min; Glucose 140.0 mg/dl (70-99(Fasting)); Potassium 4.2 mmol/L (3.5-5.1); Sodium 141.0 mmol/L (136-145)
--- NOTE | 2024-09-17 08:06 | XRay Report ---
EXAM: XR chest 1V portable CLINICAL HISTORY: CHF TECHNIQUE: An X-ray image of the chest is obtained in AP projection. COMPARISON: 09/15/2024. FINDINGS: Pulmonary Parenchyma: Unchanged mild right and moderate left pleural effusion with associated lower zone atelectatic changes. Heart and Mediastinum: Cardiomegaly. No mediastinal widening or masses. No hilar or mediastinal lymphadenopathy. Bony Thorax: Bony thorax appears intact without fractures or deformities. Soft Tissues: Soft tissues overlying the chest wall are unremarkable. IMPRESSION: No gross interval change in comparison with 09/15/2024. Unchanged mild right and moderate left pleural effusion with associated lower zone atelectatic changes. Electronically signed by Rafal Prescott 09-17-2024 08:05 AM
--- NOTE | 2024-09-17 09:03 | Cardiology Progress Note ---
Date of Service September 17, 2024 Assessment & Plan (1) Acute exacerbation of CHF (congestive heart failure): (2) Hypotension: (3) Cardiomyopathy: (4) LBBB (left bundle branch block): Plan 1. Congestive heart failure: Her acute presentation appears to be due to not taking a diuretic for several days in association with her underlying cardiomyopathy. Possibly excessive fluid intake as well. This appears to be gradually improving although she is still in significant heart failure and has excess fluid. Her weight has begun to decrease more rapidly and her output is substantial over the last several days. We need to continue with diuresis but there does appear to be progress with her current management. 2. Hypotension: Unfortunately with her severe cardiomyopathy hypotension has limited both the use of heart failure medications and diuresis. She is now on midodrine, her blood pressure fluctuates and runs a little low at times but she is asymptomatic and this is acceptable. I would continue the metoprolol succinate since her heart rate is quite elevated, hopefully we can very gradually increase that but that will likely be as an outpatient. We also need to continue with diuresis as long as her creatinine does not climb significantly. 3. Cardiomyopathy: She has a severe cardiomyopathy, the etiology is not clear but it is likely nonischemic. She will need some sort of ischemic evaluation (ideally a catheterization, or possibly a nuclear study). Unfortunately we have not been able to use guideline directed medical therapy due to hypotension. She is currently on metoprolol succinate 25 mg daily, and I started Jardiance and spironolactone which she is tolerating. Her potassium was low on presentation but had been climbing, I did hold her potassium until we see the effect of spironolactone. Her potassium is good today so I have not reinstituted supplementation although we may have to at some point. I am going to repeat her echo as a limited study to look at her ejection fraction and left ventricular size, I would like to see if there has been any change since her prior hospitalization. As we are contemplating a biventricular device I want to be confident that her ejection fraction has not changed. 4. Left bundle branch block: She has developed a left bundle branch block over the last several years based on electrocardiograms that we have. Her QRS duration is now greater than 120 ms (although not a lot over), it is possible that this has contributed to her cardiomyopathy. Biventricular pacing with a biventricular ICD might be a consideration. Even though the QRS is not terribly wide it does appear to be a left bundle pattern and resynchronization can sometimes yield dramatic results. We should first determine whether she has had an anterior myocardial infarction however, which would be the other possibility for her left bundle branch pattern. I did discuss this with her and she is willing but is concerned about laying supine. I did discuss with Dr. Kramer the possibility of catheterization, he agrees we should do that. She has been n.p.o. for possible catheterization today, but she still has significant fluid and has orthopnea and so I am going to wait until tomorrow and continue diuresis today. Admission and Anticipated Discharge Date Admission Date: September 12, 2024 Subjective She is feeling better today, she is less short of breath, however she notes that her legs still are quite swollen, especially when she does not keep them up. She is still on oxygen. Physical Exam Physical Exam: Constitutional: Alert, cooperative and in no distress. She appears less short of breath today. HEENT: Unremarkable, nasal O2 Neck: No jugular venous distention, carotid pulses are somewhat rapid but normal and equal bilaterally without bruits. Pulmonary: Bilateral basilar rales on auscultation. Cardiac: Regular rapid rhythm with no murmur, gallop or rub. Abdomen: Soft, nontender with normal bowel sounds. Extremities: +2-3 bilateral pretibial edema. Neurologic: No focal findings. Gait is steady. Skin: No rash, ecchymoses or petechiae. Results & Data Vital Signs (Past 12 Hours) Vital Signs Temp Pulse Resp BP Pulse Ox Pulse Ox O2 Del Method 09/17/24 07:48 36.6 C 96 H 20 100/70 90 High Flow Nasal Cannula 09/17/24 03:14 36.5 C 92 H 16 90/65 L 92 Nasal Cannula 09/17/24 02:00 93 09/17/24 00:41 36.7 C 98 H 18 95/67 L 92 Nasal Cannula O2 Del Method O2 Flow Rate O2 Flow Rate 09/17/24 07:48 5 09/17/24 03:14 5 09/17/24 02:00 High Flow Nasal Cannula 5 09/17/24 00:41 Laboratory Results Comprehensive Metabolic Panel 09/17/24 Range/Units 05:34 Sodium 141 (136-145) mmol/L Potassium 4.2 (3.5-5.1) mmol/L Chloride 96 L (98-107) mmol/L Carbon Dioxide 37 H (21-32) mmol/L BUN 28 H (6-23) mg/dl Creatinine 0.97 (0.6-1.2) mg/dl Glucose 140 H (70-99(Fasting)) mg/dl Calcium 9.0 (8.6-10.3) mg/dl Intake and Output 09/16/24 09/17/24 09/17/24 22:59 06:59 14:59 Output Total 1250 / 4325 950 / 4325 Balance -1250 / -3975 -950 / -3975 Output: Urine 1250 / 4325 950 / 4325 Other: Other Intake Source NPO Weight 72.8 kg Weight Measurement Method Standing Scale Diagnostic Findings Telemetry: Sinus rhythm and sinus tachycardia, averaging around 100 but might be marginally better than the prior 24 hours. PG Care Time/CCT Total # of Minutes Spent Total Time Spent with Patient: Total time spent is greater than 50% in coordination of care (as documented) at patient's floor/unit and/or counseling patient: Coding Level of Care Code 03790 SUB INP/OBS CARE 3/50MIN Diagnoses Acute exacerbation of CHF (congestive heart failure) I50.9 Hypotension I95.9 Cardiomyopathy I42.9 LBBB (left bundle branch block) I44.7
[2024-09-17] MEDS ORDERED: LORazepam 0.5 MG TAB PO PRN (11:20)
--- NOTE | 2024-09-17 12:37 | Hospitalist Progress Note ---
Date of Service September 17, 2024 Assessment & Plan (1) Acute on chronic respiratory failure with hypoxia and hypercapnia: Plan: Supplemental oxygen per nasal cannula to keep saturations 90 to 92%. Avoid high oxygen saturations to prevent further CO2 retention. Wean to usual levels as tolerated. Treat underlying CHF (2) Acute on chronic systolic heart failure: Plan: Appreciate cardiology consultation and recommendations. She has been started on spironolactone and Jardiance. Biventricular pacemaker is being considered. Left heart catheterization has tentatively been scheduled for tomorrow, September 17. Continue parenteral Lasix. She is now having a brisk diuresis with the parenteral Lasix. Chest x-ray done today, September 17, continues to show evidence of CHF with bilateral pleural effusions, left greater than right. She underwent cardiac echo today, September 17. Results are pending. Probable heart catheterization tomorrow, September 18 (3) Hypotension: Plan: Midodrine appears to have helped. Blood pressure is low normal but acceptable. Cardiology has started her on spironolactone and Jardiance. (4) Candidiasis of mouth and esophagus: Plan: Probably due to recent steroid therapy coupled with diabetes. Resolving with nystatin swish and swallow (5) Dilated cardiomyopathy: Plan: Known ejection fraction of 15% per recent echo. Appreciate cardiology consultation recommendations. Biventricular pacing is being considered. Left heart catheterization is scheduled for tomorrowSeptember 17 (6) COPD (chronic obstructive pulmonary disease): Plan: With chronic respiratory failure. Treat underlying CHF. Continue current medical management (7) Hypertension: Plan: Blood pressure is low but acceptable with midodrine. Metoprolol dosage could be down titrated if needed. Will follow (8) Type 2 diabetes mellitus: Plan: NPH insulin placed on hold due to hypoglycemia on the morning of September 15. Glucose 140 this morning, September 17. Continue sliding scale coverage as needed. ADA diet (9) Current smoker: Plan: Smoking cessation has been highly recommended to the patient (10) Anxiety state: Plan: P.o. lorazepam every 12hr as needed Plan To be determined by clinical response to treatment. Hopefully she will eventually be able to return home Admission and Anticipated Discharge Date Admission Date: September 12, 2024 Subjective Alert and oriented. She diuresed quite a bit of fluid but chest x-ray still reveals bilateral effusions left greater than right and underlying CHF. She has some anxiety and is requesting p.o. Ativan as needed. Cardiac echo ordered for today, September 17. She will undergo left heart catheterization possibly tomorrow, September 18. Glucose 140. Insulin was discontinued on September 15 due to hypoglycemia. She is currently on 5 L of oxygen. Potassium stable at 4.2. Review of Systems 2 Review of Systems: Constitutionalno fever or chills. Recent weight gain and worsening peripheral edema ENTno blurred vision, no double vision, no epistaxis, no sore throat Respiratoryno cough, no wheezing. She has noted recent orthopnea and dyspnea on exertion Cardiacno palpitations, no chest pain, no syncope Brayden nausea, vomiting, diarrhea, melena, hematochezia GUno urinary retention, no urinary incontinence, no dysuria, no hematuria Musculoskeletalno joint pain, no muscle tenderness. She has noticed a worsening lower extremity edema bilaterally Skinno bruising, no rashes, no pruritus Neurono isolated weakness, no paresthesia, no weakness Psychno depression, no anxiety Physical Exam 2 Physical Exam: General-alert and oriented x3, no fever, no chills HEENT-head atraumatic and normocephalic, pupils equal and reactive to light, extraocular muscles intact. Oral thrush noted Neck-no lymphadenopathy or thyromegaly, trachea midline Chest-bibasilar inspiratory rales. No rhonchi. No wheeze Cardiac-regular rate and rhythm, normal S1 and S2 Abdomen-normal bowel sounds, no hepatosplenomegaly Extremities-2+ pitting edema bilateral lower extremities below the knees Neuro-cranial nerves II through XII intact, motor and sensory function within normal limits, strength symmetrical, no focal deficits Psych-normal affect, normal mood Results & Data Results & Data Vital Signs (Past 12 Hours) Vital Signs Temp Pulse Resp BP Pulse Ox Pulse Ox O2 Del Method 09/17/24 10:33 111 H 108/76 09/17/24 08:45 Nasal Cannula 09/17/24 07:48 36.6 C 96 H 20 100/70 90 High Flow Nasal Cannula 09/17/24 03:14 36.5 C 92 H 16 90/65 L 92 Nasal Cannula 09/17/24 02:00 93 09/17/24 00:41 36.7 C 98 H 18 95/67 L 92 Nasal Cannula O2 Del Method O2 Flow Rate O2 Flow Rate 09/17/24 10:33 09/17/24 08:45 5 09/17/24 07:48 5 09/17/24 03:14 5 09/17/24 02:00 High Flow Nasal Cannula 5 09/17/24 00:41 Laboratory Results 09/16/24 05:24 09/17/24 05:34 PG Care Time/CCT Total # of Minutes Spent Total Time Spent with Patient: Total time spent is greater than 50% in coordination of care (as documented) at patient's floor/unit and/or counseling patient: Coding Level of Care Code 27872 SUB INP/OBS CARE 2/35MIN Diagnoses Acute on chronic respiratory failure with hypoxia and hypercapnia J96.21; J96.22 Acute on chronic systolic heart failure I50.23 Hypotension I95.9 Candidiasis of mouth and esophagus B37.81; B37.0 Dilated cardiomyopathy I42.0 COPD (chronic obstructive pulmonary disease) J44.9 Hypertension I10 Type 2 diabetes mellitus E11.9 Current smoker F17.200 Anxiety state F41.1
--- NOTE | 2024-09-17 15:40 | XCELERA ---
[id number]
[2024-09-18 07:06] LABS: Anion Gap 6.0 (3-11); Blood Urea Nitrogen 27.0 mg/dl (6-23); Calcium 9.2 mg/dl (8.6-10.3); Carbon Dioxide 41.0 mmol/L (21-32); Chloride 94.0 mmol/L (98-107); Creatinine Clr Calc Pharmacy 48.2 ml/min; Glucose 137.0 mg/dl (70-99(Fasting)); Potassium 4.3 mmol/L (3.5-5.1); Sodium 141.0 mmol/L (136-145)
--- NOTE | 2024-09-18 09:20 | Cardiology Progress Note ---
Date of Service September 18, 2024 Assessment & Plan (1) Acute exacerbation of CHF (congestive heart failure): (2) Hypotension: (3) Cardiomyopathy: (4) LBBB (left bundle branch block): Plan 1. Congestive heart failure: Her acute presentation appears to be due to not taking a diuretic for several days in association with her underlying cardiomyopathy. Possibly excessive fluid intake as well. This is gradually improving although she is still in moderate heart failure and still has excess fluid. Her weight has decreased steadily in the last several days and her output is substantial over the last several days. We need to continue with diuresis but there does appear to be progress with her current management. I believe she can tolerate laying still for the catheterization today. 2. Hypotension: Unfortunately with her severe cardiomyopathy hypotension has limited both the use of heart failure medications and diuresis. She is now on midodrine, her blood pressure fluctuates and runs a low most of the time but she is asymptomatic and this is acceptable. I would continue the metoprolol succinate since her heart rate is quite elevated, hopefully we can very gradually increase that but that will likely be as an outpatient. We also need to continue with diuresis as long as her creatinine does not climb significantly. It has bumped up slightly but continues to be normal. 3. Cardiomyopathy: She has a severe cardiomyopathy, the etiology is not clear and it may be nonischemic. She will need some sort of ischemic evaluation (ideally a catheterization, or possibly a nuclear study). Unfortunately we have not been able to use guideline directed medical therapy due to hypotension. She is currently on metoprolol succinate 25 mg daily, and I started Jardiance and spironolactone which she is tolerating. Her potassium was low on presentation but had been climbing, I did hold her potassium until we see the effect of spironolactone. Her potassium is good today so I have not reinstituted supplementation although we may have to at some point. Her repeat echo shows similar findings to July of this year. 4. Left bundle branch block: She has developed a left bundle branch block over the last several years based on electrocardiograms that we have. Her QRS duration is now greater than 120 ms (although not a lot over), it is possible that this has contributed to her cardiomyopathy. Biventricular pacing with a biventricular ICD might be a consideration. Even though the QRS is not terribly wide it does appear to be a left bundle pattern and resynchronization can sometimes yield dramatic results. We should first determine whether she has had an anterior myocardial infarction however, which would be the other possibility for her left bundle branch pattern. I did discuss this with her and she is willing but is concerned about laying supine. She appears to be stable for catheterization today and is agreeable. Admission and Anticipated Discharge Date Admission Date: September 12, 2024 Subjective She is feeling better today, she was able to lay on her side to sleep which is an improvement when she has less shortness of breath with activities. Physical Exam Physical Exam: Constitutional: Alert, cooperative and in no distress. She is short of breath today. HEENT: Unremarkable, nasal O2 Neck: No jugular venous distention, carotid pulses are somewhat rapid but normal and equal bilaterally without bruits. Pulmonary: Today her lung's are clear on auscultation, although with decreased breath sounds. Cardiac: Regular rapid rhythm with no murmur, gallop or rub. Abdomen: Soft, nontender with normal bowel sounds. Extremities: +2 bilateral pretibial edema. Neurologic: No focal findings. Gait is steady. Skin: No rash, ecchymoses or petechiae. Results & Data Vital Signs (Past 12 Hours) Vital Signs Temp Pulse Pulse Resp BP BP Pulse Ox 09/18/24 08:31 36.6 C 97 H 19 95/67 L 94 09/18/24 03:32 36.3 C L 90 19 92/64 L 94 09/17/24 22:58 36.5 C 102 H 18 98 09/17/24 22:49 103 H 09/17/24 21:23 O2 Del Method O2 Flow Rate 09/18/24 08:31 High Flow Nasal Cannula 5 09/18/24 03:32 Nasal Cannula 5 09/17/24 22:58 Nasal Cannula 5 09/17/24 22:49 09/17/24 21:23 Nasal Cannula 5 Laboratory Results Comprehensive Metabolic Panel 09/18/24 Range/Units 05:53 Sodium 141 (136-145) mmol/L Potassium 4.3 (3.5-5.1) mmol/L Chloride 94 L (98-107) mmol/L Carbon Dioxide 41 H* (21-32) mmol/L BUN 27 H (6-23) mg/dl Creatinine 1.06 (0.6-1.2) mg/dl Glucose 137 H (70-99(Fasting)) mg/dl Calcium 9.2 (8.6-10.3) mg/dl Intake and Output 09/17/24 09/18/24 09/18/24 22:59 06:59 14:59 Intake Total 240 / 720 Output Total 1000 / 1850 550 / 1850 Balance -760 / -1130 -550 / -1130 Intake: Oral 240 / 720 Output: Urine 1000 / 1850 550 / 1850 Other: Weight 72.3 kg Weight Measurement Method Standing Scale Diagnostic Findings Telemetry: Sinus rhythm and sinus tachycardia, rate has gradually dropped over several days but still remains elevated. PG Care Time/CCT Total # of Minutes Spent Total Time Spent with Patient: Total time spent is greater than 50% in coordination of care (as documented) at patient's floor/unit and/or counseling patient: Coding Level of Care Code 39410 SUB INP/OBS CARE 2/35MIN Diagnoses Acute exacerbation of CHF (congestive heart failure) I50.9 Hypotension I95.9 Cardiomyopathy I42.9 LBBB (left bundle branch block) I44.7
--- NOTE | 2024-09-18 11:47 | Pre Anesthesia Assessment ---
Date of Service September 18, 2024 Pre Sedation Assessment Vital Signs Temp Pulse Pulse Pulse Resp BP BP 09/18/24 11:35 99 H 15 95/66 L 09/18/24 09:00 09/18/24 09:00 92 H 09/18/24 08:31 36.6 C 97 H 19 95/67 L 09/18/24 03:32 36.3 C L 90 19 92/64 L 09/17/24 22:58 36.5 C 102 H 18 09/17/24 22:49 103 H 09/17/24 21:23 09/17/24 19:10 36.7 C 99 H 18 100/67 09/17/24 17:01 36.7 C 103 H 18 91/70 L 09/17/24 14:39 107 H 09/17/24 12:48 100 H Pulse Ox O2 Del Method O2 Flow Rate 09/18/24 11:35 91 Room Air 09/18/24 09:00 Nasal Cannula, High Flow Nasal Cannula 5 09/18/24 09:00 09/18/24 08:31 94 High Flow Nasal Cannula 5 09/18/24 03:32 94 Nasal Cannula 5 09/17/24 22:58 98 Nasal Cannula 5 09/17/24 22:49 09/17/24 21:23 Nasal Cannula 5 09/17/24 19:10 95 Nasal Cannula 5 09/17/24 17:01 95 Nasal Cannula 5 09/17/24 14:39 09/17/24 12:48 Cardiovascular RRR, no murmur, no edema Respiratory Additional Comments: on O2. Poor air movement and basilar crackles. Pre-Sedation Airway Assessment Smoking Status: Current every day smoker Short, Thick Neck: Yes Thyromental Distance: > or= 3.5 Finger Breadths Oral Cavity: + Dentures Mallampati Class: III ASA: ASA4 NPO Status Date of Last Intake of Fluids: 09/18/24 Time of Last Intake of Fluids: 09:00 Date of Last Intake of Solid Food: 09/17/24 Time of Last Intake of Solid Foods: 21:00 Notes The planned sedation has been discussed with the patient. Informed Consent was obtained. I have identified the patient, determined the appropriateness of sedation and have assessed the patient immediately prior to the procedure. All medicine(s) and interventions are by my order.
[2024-09-18] MEDS: NITROGLYCERIN/D5W 100MCG/ML 20ML SYR ONE (12:09)
[2024-09-18] MEDS: IODIXANOL (VISIPAQUE) 320 MG/ML 100ML IV ONE (12:09)
[2024-09-18] MEDS: OPTIRAY 350 ONE (12:17)
[2024-09-18] MEDS: HEPARIN (PORCINE) 1000 UNIT/ML 10 ML (CATH LAB USE ONLY) ONE (12:18)
[2024-09-18] MEDS: MIDAZOLAM HCL 1 MG/ML 2ML VIAL ONE (12:18)
--- NOTE | 2024-09-18 12:22 | Post Anesthesia Assessment ---
Date of Service September 18, 2024 Post Sedation Assessment Vital Signs Temp Pulse Pulse Pulse Resp BP BP 09/18/24 11:35 99 H 15 95/66 L 09/18/24 09:00 09/18/24 09:00 92 H 09/18/24 08:31 36.6 C 97 H 19 95/67 L 09/18/24 03:32 36.3 C L 90 19 92/64 L 09/17/24 22:58 36.5 C 102 H 18 09/17/24 22:49 103 H 09/17/24 21:23 09/17/24 19:10 36.7 C 99 H 18 100/67 09/17/24 17:01 36.7 C 103 H 18 91/70 L 09/17/24 14:39 107 H 09/17/24 12:48 100 H Pulse Ox O2 Del Method O2 Flow Rate 09/18/24 11:35 91 Room Air 09/18/24 09:00 Nasal Cannula, High Flow Nasal Cannula 5 09/18/24 09:00 09/18/24 08:31 94 High Flow Nasal Cannula 5 09/18/24 03:32 94 Nasal Cannula 5 09/17/24 22:58 98 Nasal Cannula 5 09/17/24 22:49 09/17/24 21:23 Nasal Cannula 5 09/17/24 19:10 95 Nasal Cannula 5 09/17/24 17:01 95 Nasal Cannula 5 09/17/24 14:39 09/17/24 12:48 Recovery Score Activity: Moves 4 extremities Respiration: Deep Breath/Cough Circulation: +/-20% PreAnes Value Consciousness: Fully Awake Oxygen Saturation: > 92% On Room Air Discharge Sedation Level of Care: Fast Track Phase II Post Sedation Plan On clinical assessment, the patient appears to have tolerated the sedation without complications. Patient is recovering as anticipated. Patient will continue to be monitored by nursing and may be discharged when sedation discharge criteria are met per below protocol. Upon Completions of procedure up to 15 minutes continue every 5 minute vital signs and the P.A.R. score; then discharge to a Phase I or Fast Track to Phase II per the following guidelines: * Discharge Patient to appropriate Phase II area if PAR is 8 or greater or return to pre- procedure baseline. The post - procedure orders will be as directed. * If PAR score is less than 8 or not return to pre-procedure baseline then patient will follow Phase I monitoring till PAR is reached for Phase II. The Phase I may be done in procedure room or may call to secure a Phase I area. * If naloxone or flumazenil are used for reversal, hold in Phase I for continued monitoring from when last reversal dose was given for a minimum of 60 minutes or longer pending the nurse and/or physician discretion of patient condition before discharge to Phase II. Please call the Sedation Physician to re-evaluate and complete post-note for discharge to Phase II area. Do NOT discharge from procedure sedation or Phase 1 until post- sedation evaluation note is complete by procedure /sedation MD Sedation Discharge Instructions to be given to the patient at discharge to home. [facility] [place] Procedure Codes (Charges) Indication for Procedure Indication for procedure: cardiomyopathy Sedation/Anesthesia Procedure 1: Sedation/Anesthesia: 59038 Mod Sedation by the same physician;Init15 Min Child Age 5 & Up (initial 15 min, start 1206, end 1215) Total Sedation Time (minutes): 9
--- NOTE | 2024-09-18 22:39 | Hospitalist Progress Note ---
Date of Service September 18, 2024 Assessment & Plan (1) Acute on chronic respiratory failure with hypoxia and hypercapnia: Plan: Supplemental oxygen per nasal cannula to keep saturations 90 to 92%. Avoid high oxygen saturations to prevent further CO2 retention. Wean to usual levels as tolerated. Treat underlying CHF Hold back lasix (2) Acute on chronic systolic heart failure: Plan: Appreciate cardiology consultation and recommendations. She has been started on spironolactone and Jardiance. Biventricular pacemaker is being considered. Left heart catheterization has tentatively been scheduled for tomorrow, September 17. Continue parenteral Lasix. She is now having a brisk diuresis with the parenteral Lasix. Chest x-ray done today, September 17, continues to show evidence of CHF with bilateral pleural effusions, left greater than right. She underwent cardiac echo today, September 17. Results are pending. heart catheterization completed, September 18 decrease lasix after AM dose due to metabolic alkalosis (3) Hypotension: Plan: Midodrine appears to have helped. Blood pressure is low normal but acceptable. Cardiology has started her on spironolactone and Jardiance. (4) Candidiasis of mouth and esophagus: Plan: Probably due to recent steroid therapy coupled with diabetes. Resolving with nystatin swish and swallow (5) Dilated cardiomyopathy: Plan: Known ejection fraction of 15% per recent echo. Appreciate cardiology consultation recommendations. Biventricular pacing is being considered. Left heart catheterization is scheduled for tomorrowSeptember 17 (6) COPD (chronic obstructive pulmonary disease): Plan: With chronic respiratory failure. Treat underlying CHF. Continue current medical management (7) Hypertension: Plan: Blood pressure is low but acceptable with midodrine. Metoprolol dosage could be down titrated if needed. Will follow (8) Type 2 diabetes mellitus: Plan: NPH insulin placed on hold due to hypoglycemia on the morning of September 15. Glucose 140 this morning, September 17. Continue sliding scale coverage as needed. ADA diet (9) Current smoker: Plan: Smoking cessation has been highly recommended to the patient (10) Anxiety state: Plan: P.o. lorazepam every 12hr as needed Plan To be determined by clinical response to treatment. Hopefully she will eventually be able to return home Admission and Anticipated Discharge Date Admission Date: September 12, 2024 Subjective Patient reports slight improvement in her breathing. Physical Exam Physical Exam: General-alert and oriented x3, no fever, no chills HEENT-head atraumatic and normocephalic, Chest-bibasilar inspiratory rales. No rhonchi. No wheeze Cardiac-regular rate and rhythm, normal S1 and S2 Abdomen-normal bowel sounds, no hepatosplenomegaly Extremities-2+ pitting edema bilateral lower extremities below the knees Results & Data Results & Data Vital Signs (Past 12 Hours) Vital Signs Temp Pulse Pulse Resp BP BP Pulse Ox 09/18/24 21:14 09/18/24 19:20 36.7 C 96 H 18 98/68 L 94 09/18/24 18:02 97 H 09/18/24 16:40 100 H 19 100/71 91 09/18/24 15:40 101 H 20 117/75 91 09/18/24 14:40 89 20 115/75 91 09/18/24 13:40 98 H 20 119/79 91 09/18/24 13:10 102 H 18 110/73 87 L 09/18/24 12:40 36.8 C 94 H 19 94/65 L 88 L 09/18/24 12:25 88 20 94/61 L 92 09/18/24 11:35 99 H 15 95/66 L 91 O2 Del Method O2 Flow Rate 09/18/24 21:14 Nasal Cannula 6 09/18/24 19:20 Nasal Cannula 6 09/18/24 18:02 09/18/24 16:40 Nasal Cannula 6 09/18/24 15:40 Nasal Cannula 6 09/18/24 14:40 Nasal Cannula 6 09/18/24 13:40 Nasal Cannula 6 09/18/24 13:10 Nasal Cannula, High Flow Nasal Cannula 7 09/18/24 12:40 Nasal Cannula, High Flow Nasal Cannula 5 09/18/24 12:25 Nasal Cannula 5 09/18/24 11:35 High Flow Nasal Cannula 5 PG Care Time/CCT Total # of Minutes Spent Total Time Spent with Patient: Total time spent is greater than 50% in coordination of care (as documented) at patient's floor/unit and/or counseling patient: Coding Level of Care Code 22085 SUB INP/OBS CARE 3/50MIN Diagnoses Acute on chronic respiratory failure with hypoxia and hypercapnia J96.21; J96.22 Acute on chronic systolic heart failure I50.23 Hypotension I95.9 Candidiasis of mouth and esophagus B37.81; B37.0 Dilated cardiomyopathy I42.0 COPD (chronic obstructive pulmonary disease) J44.9 Hypertension I10 Type 2 diabetes mellitus E11.9 Current smoker F17.200 Anxiety state F41.1
[2024-09-19 06:35] LABS: Hematocrit (blood only) 33.9 % (37.0-47.0); Hemoglobin 11.3 g/dl (12.0-16.0); Mean Corpuscular Hemoglobin 27.5 pg (25.0-34.0); Mean Corpuscular Volume 82.5 fL (80.0-100.0); Platelet Count 226 K/uL (130-400); RDW Standard Deviation 51.6 fL (36.4-46.3); Red Blood Count 4.11 M/uL (4.20-5.40); White Blood Count 6.11 K/ul (4.8-10.8)
[2024-09-19 06:56] LABS: Anion Gap 7.0 (3-11); Blood Urea Nitrogen 31.0 mg/dl (6-23); Calcium 9.0 mg/dl (8.6-10.3); Carbon Dioxide 39.0 mmol/L (21-32); Chloride 94.0 mmol/L (98-107); Creatinine Clr Calc Pharmacy 51.3 ml/min; Glucose 183.0 mg/dl (70-99(Fasting)); Potassium 3.9 mmol/L (3.5-5.1); Sodium 140.0 mmol/L (136-145)
[2024-09-19] MEDS: acetaZOLAMIDE 500 MG in SYRINGE 0 ML IV ONE (08:07)
--- NOTE | 2024-09-19 09:58 | Cardiology Progress Note ---
Date of Service September 19, 2024 Assessment & Plan (1) Acute exacerbation of CHF (congestive heart failure): (2) Hypotension: (3) Cardiomyopathy: (4) LBBB (left bundle branch block): Plan 1. Congestive heart failure: Improving. She is affecting a good diuresis. Diuretics were actually held yesterday due to concerns over hypotension. Renal function stable. She may have an element of intravascular depletion. No diuretics again today. Will watch her output, symptoms and renal function. 2. Hypotension: Essentially unchanged. Still low blood pressures despite the use of midodrine. 3. Cardiomyopathy: She has a severe cardiomyopathy. Angiography yesterday did reveal an LAD lesion, not likely responsible for her degree of LV dysfunction. She is tolerating some medications to include spironolactone, Jardiance and metoprolol. 4. Left bundle branch block: Borderline. QRS duration fairly narrow. Based on her degree of LV dysfunction she would benefit from an ICD provide there is no improvement with medical therapy. At that point we could consider resynchro nization as well. Admission and Anticipated Discharge Date Admission Date: September 12, 2024 Subjective Patient reports continuing dyspnea with activity. No significant breathing difficulty at rest. No orthopnea. She does have some lower extremity edema which may have improved slightly. No exertional chest pain or dizziness. No sense of palpitation Review of Systems Review of Systems: Per HPI Physical Exam Physical Exam: Constitutional: Alert, cooperative and in no distress. She is short of breath today. HEENT: Unremarkable, nasal O2 Neck: No jugular venous distention, carotid pulses are somewhat rapid but normal and equal bilaterally without bruits. Pulmonary: Distant breath sounds with bronchial sounds and occasional crackle at the left base. Cardiac: Regular rhythm. No murmurs. Extremities: +2 bilateral pretibial edema. Right worse than left. Right radial access site without hematoma. Good perfusion of the right hand. Neurologic: No focal findings. Gait is steady. Skin: No rash, ecchymoses or petechiae. Results & Data Vital Signs (Past 12 Hours) Vital Signs Temp Pulse Pulse Resp BP Pulse Ox O2 Del Method 09/19/24 07:14 36.7 C 90 19 93/70 L 92 Nasal Cannula 09/19/24 03:21 36.4 C L 92 H 21 92/69 L 92 Nasal Cannula 09/18/24 23:15 36.5 C 97 H 19 83/70 L 94 Nasal Cannula 09/18/24 22:48 107 H O2 Flow Rate 09/19/24 07:14 4.0 09/19/24 03:21 6 09/18/24 23:15 6 09/18/24 22:48 Laboratory Results Abnormal Lab Results 09/18/24 09/18/24 09/18/24 11:21 16:21 16:22 WBC RBC Hgb Hct MCV MCH MCHC RDW Std Deviation RDW Coeff of Robin Plt Count MPV Sodium Potassium Chloride Carbon Dioxide Anion Gap BUN Creatinine Est Cr Clr Drug Dosing eGFR BUN/Creatinine Ratio Glucose POC Glucose 146 H 309 H* 337 H* Calcium C-Reactive Protein B-Natriuretic Peptide 09/18/24 09/19/24 09/19/24 20:13 05:40 07:11 WBC 6.11 RBC 4.11 L Hgb 11.3 L Hct 33.9 L MCV 82.5 MCH 27.5 MCHC 33.3 RDW Std Deviation 51.6 H RDW Coeff of Robin 17.5 H Plt Count 226 MPV 10.5 Sodium 140 Potassium 3.9 Chloride 94 L Carbon Dioxide 39 H Anion Gap 7 BUN 31 H Creatinine 0.99 Est Cr Clr Drug Dosing 51.3 eGFR 64.07 BUN/Creatinine Ratio 31.3 H Glucose 183 H POC Glucose 186 H 169 H Calcium 9.0 C-Reactive Protein 0.52 H B-Natriuretic Peptide 1948 H PG Care Time/CCT Total # of Minutes Spent Total Time Spent with Patient: Total time spent is greater than 50% in coordination of care (as documented) at patient's floor/unit and/or counseling patient: Coding Level of Care Code 52417 SUB INP/OBS CARE 2/35MIN Diagnoses Acute exacerbation of CHF (congestive heart failure) I50.9 Hypotension I95.9 Cardiomyopathy I42.9 LBBB (left bundle branch block) I44.7
--- NOTE | 2024-09-19 15:01 | Cardiac Catheterization ---
[facility] Data: Equipment Operat0R Cardiac Status Clinical evaluation leading to the procedure CAD Presenation: Sx unlikely to be ischemic Anginal Classification: CCS IV (Dyspnea at rest) Heart Failure: NYHA Class: CCS IV Cardiogenic Shock within 24 Hours: No Imaging Studies Past 6 Months: Yes Stress Studies Past 6 Months: No Coronary Anatomy Dominant: Right Left Main (% Stenosis): Normal LAD (% Stenosis): Proximal (30%) D1 (% Stenosis): Normal D2 (% Stenosis): Normal Circumflex (% Stenosis): Proximal (40 to 50%) and Mid (30%) OM1 (% Stenosis): Normal OM2 (% Stenosis): Ostial (99%) L PL1 (% Stenosis): Normal RCA (% Stenosis): Proximal (100%) R PDA (% Stenosis): Normal R PL1 (% Stenosis): Normal Diagnostic Physicians Name: Holland Kramer MD, PhD Closure Device Percutaneous Entry Location: Radial Closure Device: Angio-Seal Recommendations: Medical Therapy and/or Counseling Cardiac Cath Procedure Full Procedure Date September 19, 2024 Pre-Procedure Diagnosis Pre-Procedure Diagnosis: Non STEMI and Cardiomyopathy AUC Score AUC Score: 07 Post-Procedure Diagnosis Post-Procedure Diagnosis: Severe CAD Procedure(s) Performed Procedure(s) Performed: Coronary Angiography Parquetry Floor Layer Holland Kramer MD, PhD Estimated Blood Loss Estimated Blood Loss: 3 cc Medication(s) Medication(s): Fentanyl, Heparin, Lidocaine 1%, Nicardipine, Nitroglycerin and Versed Summary of Findings Brief description: Patient was brought to the cardiac catheterization suite where he was shaved and prepped in a sterile fashion. Sedated using IV Versed and fentanyl. Soft tissues of the right wrist were anesthetized using 2 mL of 1% Xylocaine. The right radial artery was accessed with a modified Seldinger technique and a 6 Romanian radial artery glide sheath was placed. Patient was provided anticoagulation with IV heparin and antispasmodics including nicardipine and nitroglycerin. All catheters were advanced and exchanged over a 0.035 J-tip wire. Left coronary angiography in orthogonal views a 5 Romanian [place] 4 diagnostic catheter. Right coronary angiography in orthogonal views with a 5 Romanian [place] 4 diagnostic catheter. Diagnostic catheters were removed. Radial artery sheath was removed. Hemostasis was obtained using a TR band. Patient remained hemodynamically stable and asymptomatic. She was returned to the recovery area in stable condition. This ended the case. Coronary angiography findings: [id number] vessel bifurcating into LAD and circumflex. No disease. LAD-starts is a large caliber vessel which is transapical. Proximally there is less than 30% stenosis. LAD gives a large septal branch and then a medium to large branching D1. The mid vessel then becomes smaller in caliber and has luminal irregularities. It next gives a large multi branching second diagonal. This vessel has mild luminal irregularities. The distal LAD beyond the second diagonal is very small in caliber but is long and wraps the apex. At least 1 branch of it seems to be occluded as it approaches the apex. LCx-this is large caliber and nondominant. Travels in the AV groove where the proximal segment has diffuse disease of up to 40 to 50% narrowing. Then he gives a large branching OM1. The mid AV groove circumflex has 30% diffuse disease. It gives a small to medium caliber OM 2 which has 99% ostial stenosis. It then gives an atrial branch. The distal AV groove circumflex has mild luminal irregularities and provides a large branching posterolateral. This vessel has no disease. RCA-this is large caliber and dominant. Proximal segment is 100% occluded. There is some faint right to right collaterals to the mid segment. The distal s egment is not visualized but the PDA and posterolateral branches are seen to be large and fills via [id number] collateralization. Summary: 1. Patient with severe proximal RCA stenosis chronic 100%. The appearance of the mid and distal LAD and its branches suggest it may have been occluded at 1 point and now is very atretic. 2. Recommend guideline directed medical therapy for secondary prevention of coronary disease to include low-dose aspirin, high intensity statin therapy, beta-keven, plus or minus FLORENCIA inhibitor/ARB. 3. Continue guideline directed medical therapy for severe LV systolic dysfunction. This also includes heart failure indicated beta-keven, Entresto/ARB/FLORENCIA inhibitor, SGLT2 inhibitor, spironolactone/eplerenone, and a loop diuretic as necessary. Hemodynamics Rest Ao:: 93/75 mmHg Final Ao: 90/73 mmHg LV: Not performed Recommendations Recommendations: Medical Therapy and/or Counseling Radiation Exposure (mGy) 556 mGy, fluoroscopy time 1.0 minutes Contrast (mls) 40 cc Anesthesia 1 mg Versed, 25 mcg fentanyl. Start time 1206, end time 1215 Procedural Complication(s) None Disposition Equipment Operat0R Holding/Recovery I attest to the content of the Intraoperative Record and any orders documented therein. Any exceptions are noted below. [facility] Card Cath Procedure Codes Cardiac Catheterization Procedure 1: Cardiovascular Cath Procedures: 08274 Coronaries Moderate Sedation Procedure 1: Sedation/Anesthesia: 41072 Mod Sedation by the same physician;Init15 Min Child Age 5 & Up (Initial 15 minutes, start time 1206, end time 1250) PG Care Time/CCT Total # of Minutes Spent Total Time Spent with Patient: Total time spent is greater than 50% in coordination of care (as documented) at patient's floor/unit and/or counseling patient:
--- NOTE | 2024-09-19 18:46 | Electrocardiogram Report ---
Test Reason : Blood Pressure : */* mmHG Vent. Rate : 98 BPM Atrial Rate : 98 BPM P-R Int : 156 ms QRS Dur : 120 ms QT Int : 390 ms P-R-T Axes : 60 180 44 degrees QTcB Int : 497 ms Sinus rhythm with occasional Premature ventricular complexes Low voltage QRS Poor R wave progression, consider anterior MS vs. lead placement vs. LVH Abnormal ECG When compared with ECG of 12-Sep-2024 20:14, Fusion complexes are no longer Present Premature ventricular complexes are now Present Confirmed by Zheng Farfan ([id number] on 09/19/2024 6:46:28 PM Referred By: Adrienne Malone Confirmed By: Zheng Farfan
[2024-09-19] MEDS: ONDANSETRON INJ 2 MG/ML 2 ML VIAL IV PRN (19:51)
--- NOTE | 2024-09-19 23:10 | Hospitalist Progress Note ---
Date of Service September 19, 2024 Assessment & Plan (1) Acute on chronic respiratory failure with hypoxia and hypercapnia: Plan: Supplemental oxygen per nasal cannula to keep saturations 90 to 92%. Avoid high oxygen saturations to prevent further CO2 retention. Wean to usual levels as tolerated. Treat underlying CHF Hold back lasix (2) Acute on chronic systolic heart failure: Plan: Appreciate cardiology consultation and recommendations. She has been started on spironolactone and Jardiance. Biventricular pacemaker is being considered. Left heart catheterization has tentatively been scheduled for tomorrow, September 17. Continue parenteral Lasix. She is now having a brisk diuresis with the parenteral Lasix. Chest x-ray done today, September 17, continues to show evidence of CHF with bilateral pleural effusions, left greater than right. She underwent cardiac echo today, September 17. Results are pending. heart catheterization completed, September 18 Ordered acetazolamide on 09/19 due to metabolic alkalosis Patient continues to diurese, oxygen requirement improving. (3) Hypotension: Plan: Midodrine appears to have helped. Blood pressure is low normal but acceptable. Cardiology has started her on spironolactone and Jardiance. (4) Candidiasis of mouth and esophagus: Plan: Probably due to recent steroid therapy coupled with diabetes. Resolving with nystatin swish and swallow (5) Dilated cardiomyopathy: Plan: Known ejection fraction of 15% per recent echo. Appreciate cardiology consultation recommendations. Biventricular pacing is being considered. Left heart catheterization is scheduled for tomorrow, September 17 (6) COPD (chronic obstructive pulmonary disease): Plan: With chronic respiratory failure. Treat underlying CHF. Continue current medical management (7) Hypertension: Plan: Blood pressure is low but acceptable with midodrine. Metoprolol dosage could be down titrated if needed. Will follow (8) Type 2 diabetes mellitus: Plan: NPH insulin placed on hold due to hypoglycemia on the morning of September 15. Glucose 140 this morning, September 17. Continue sliding scale coverage as needed. ADA diet (9) Current smoker: Plan: Smoking cessation has been highly recommended to the patient (10) Anxiety state: Plan: P.o. lorazepam every 12hr as needed Plan To be determined by clinical response to treatment. Hopefully she will eventually be able to return home Admission and Anticipated Discharge Date Admission Date: September 12, 2024 Subjective Patient reports breathing better. She has no new complaints. Physical Exam Physical Exam: General-alert and oriented x3, no fever, no chills HEENT-head atraumatic and normocephalic, Chest-bibasilar inspiratory rales. No rhonchi. No wheeze Cardiac-regular rate and rhythm, normal S1 and S2 Abdomen-normal bowel sounds, no hepatosplenomegaly Extremities-2+ pitting edema bilateral lower extremities below the knees Results & Data Results & Data Vital Signs (Past 12 Hours) Vital Signs Temp Pulse Pulse Resp BP Pulse Ox O2 Del Method 09/19/24 21:28 Nasal Cannula 09/19/24 19:40 36.3 C L 90 16 101/71 92 Nasal Cannula 09/19/24 15:26 36.7 C 92 H 19 93/72 L 93 Nasal Cannula 09/19/24 14:07 96 H 09/19/24 11:43 36.7 C 101 H 18 91/66 L 94 Nasal Cannula O2 Flow Rate 09/19/24 21:28 3 09/19/24 19:40 3 09/19/24 15:26 3.0 09/19/24 14:07 09/19/24 11:43 3.0 PG Care Time/CCT Total # of Minutes Spent Total Time Spent with Patient: Total time spent is greater than 50% in coordination of care (as documented) at patient's floor/unit and/or counseling patient: Coding Level of Care Code 04846 SUB INP/OBS CARE 3/50MIN Diagnoses Acute on chronic respiratory failure with hypoxia and hypercapnia J96.21; J96.22 Acute on chronic systolic heart failure I50.23 Hypotension I95.9 Candidiasis of mouth and esophagus B37.81; B37.0 Dilated cardiomyopathy I42.0 COPD (chronic obstructive pulmonary disease) J44.9 Hypertension I10 Type 2 diabetes mellitus E11.9 Current smoker F17.200 Anxiety state F41.1
[2024-09-20 06:25] LABS: Hematocrit (blood only) 38.4 % (37.0-47.0); Hemoglobin 11.8 g/dl (12.0-16.0); Mean Corpuscular Hemoglobin 26.2 pg (25.0-34.0); Mean Corpuscular Volume 85.3 fL (80.0-100.0); Platelet Count 278 K/uL (130-400); RDW Standard Deviation 53.8 fL (36.4-46.3); Red Blood Count 4.50 M/uL (4.20-5.40); White Blood Count 5.61 K/ul (4.8-10.8)
[2024-09-20 06:46] LABS: Anion Gap 6.0 (3-11); Blood Urea Nitrogen 27.0 mg/dl (6-23); Calcium 9.1 mg/dl (8.6-10.3); Carbon Dioxide 38.0 mmol/L (21-32); Chloride 95.0 mmol/L (98-107); Creatinine Clr Calc Pharmacy 50.2 ml/min; Glucose 151.0 mg/dl (70-99(Fasting)); Potassium 4.1 mmol/L (3.5-5.1); Sodium 139.0 mmol/L (136-145)
[2024-09-20] MEDS: acetaZOLAMIDE 500 MG in SYRINGE 0 ML IV ONE (08:29)
--- NOTE | 2024-09-20 13:09 | Cardiology Progress Note ---
Date of Service September 20, 2024 Assessment & Plan (1) Acute exacerbation of CHF (congestive heart failure): (2) Hypotension: (3) Cardiomyopathy: (4) LBBB (left bundle branch block): Plan 1. Congestive heart failure: Improving. She seems back to her baseline. Minimal diuresis yesterday as her diuretics were held for borderline blood pressures. She did get a dose of acetazolamide today. I will consider restarting her diuretics tomorrow after her procedure. 2. Hypotension: Essentially unchanged. Still low blood pressures despite the use of midodrine. 3. Cardiomyopathy: She has a severe cardiomyopathy. She has an occluded right coronary artery. Distal LAD was atretic. Currently on spironolactone, Jardiance and metoprolol succinate. 4. Left bundle branch block: Borderline. QRS duration fairly narrow. Based on her degree of LV dysfunction she would benefit from an ICD provide there is no improvement with medical therapy. At that point we could consider resynchronization as well. 5. Coronary artery disease: No revascularization based on her anatomy. She will continue secondary prevention with aspirin and atorvastatin. Tentative plan is for implant of a BiV ICD tomorrow. Admission and Anticipated Discharge Date Admission Date: September 12, 2024 Subjective This afternoon the patient claimed feeling well. She still has some dyspnea with activity, which she feels she has returned to her baseline. No palpitations. No dizziness or lightheadedness. No chest pain. Review of Systems Review of Systems: Per HPI Physical Exam Physical Exam: Constitutional: Alert, cooperative and in no distress. No shortness of breath at rest. Using supplemental oxygen. HEENT: Unremarkable, nasal O2 Neck: No jugular venous distention, carotid pulses are somewhat rapid but normal and equal bilaterally without bruits. Pulmonary: Distant breath sounds with bronchial sounds and crackles at the bases bilaterally. Cardiac: Regular rhythm. No murmurs. Extremities: Mild lower extremity edema Neurologic: No focal findings. Gait is steady. Skin: No rash, ecchymoses or petechiae. Results & Data Vital Signs (Past 12 Hours) Vital Signs Temp Pulse Pulse Pulse Resp BP Pulse Ox 09/20/24 11:07 36.5 C 93 H 12 93/66 L 87 L 09/20/24 07:19 88 09/20/24 07:09 36.3 C L 89 18 101/71 90 O2 Del Method O2 Flow Rate 09/20/24 11:07 High Flow Nasal Cannula 3 09/20/24 07:19 09/20/24 07:09 Nasal Cannula 3 Laboratory Results Abnormal Lab Results 09/19/24 09/19/24 09/20/24 16:10 19:41 05:38 WBC 5.61 RBC 4.50 Hgb 11.8 L Hct 38.4 MCV 85.3 MCH 26.2 MCHC 30.7 L RDW Std Deviation 53.8 H RDW Coeff of Robin 18.0 H Plt Count 278 MPV 10.8 Sodium 139 Potassium 4.1 Chloride 95 L Carbon Dioxide 38 H Anion Gap 6 BUN 27 H Creatinine 1.02 Est Cr Clr Drug Dosing 50.2 eGFR 61.82 BUN/Creatinine Ratio 26.5 H Glucose 151 H POC Glucose 187 H 256 H Calcium 9.1 B-Natriuretic Peptide 1752 H 09/20/24 09/20/24 07:09 11:06 WBC RBC Hgb Hct MCV MCH MCHC RDW Std Deviation RDW Coeff of Robin Plt Count MPV Sodium Potassium Chloride Carbon Dioxide Anion Gap BUN Creatinine Est Cr Clr Drug Dosing eGFR BUN/Creatinine Ratio Glucose POC Glucose 152 H 184 H Calcium B-Natriuretic Peptide PG Care Time/CCT Total # of Minutes Spent Total Time Spent with Patient: Total time spent is greater than 50% in coordination of care (as documented) at patient's floor/unit and/or counseling patient: Coding Level of Care Code 41872 SUB INP/OBS CARE 2/35MIN Diagnoses Acute exacerbation of CHF (congestive heart failure) I50.9 Hypotension I95.9 Cardiomyopathy I42.9 LBBB (left bundle branch block) I44.7
--- NOTE | 2024-09-20 15:13 | Hospitalist Progress Note ---
Date of Service September 20, 2024 Assessment & Plan (1) Acute on chronic respiratory failure with hypoxia and hypercapnia: Plan: Supplemental oxygen per nasal cannula to keep saturations 90 to 92%. Avoid high oxygen saturations to prevent further CO2 retention. Wean to usual levels as tolerated. Treat underlying CHF Hold back lasix (2) Acute on chronic systolic heart failure: Plan: Appreciate cardiology consultation and recommendations. She has been started on spironolactone and Jardiance. Biventricular pacemaker is being considered. Left heart catheterization has tentatively been scheduled for tomorrow, September 17. Continue parenteral Lasix. She is now having a brisk diuresis with the parenteral Lasix. Chest x-ray done today, September 17, continues to show evidence of CHF with bilateral pleural effusions, left greater than right. She underwent cardiac echo today, September 17. Results are pending. heart catheterization completed, September 18 Ordered acetazolamide on 09/19 due to metabolic alkalosis Patient continues to diurese, oxygen requirement improving. She appears to be back to her baseline. She continues to be close to a net negative of 1 liter. metabolic alkalosis is better. (3) Hypotension: Plan: Midodrine appears to have helped. Blood pressure is low normal but acceptable. Cardiology has started her on spironolactone and Jardiance. (4) Candidiasis of mouth and esophagus: Plan: Probably due to recent steroid therapy coupled with diabetes. Resolving with nystatin swish and swallow (5) Dilated cardiomyopathy: Plan: Known ejection fraction of 15% per recent echo. Appreciate cardiology consultation recommendations. Biventricular pacing is being considered. Left heart catheterization is scheduled for tomorrowSeptember 17 (6) COPD (chronic obstructive pulmonary disease): Plan: With chronic respiratory failure. Treat underlying CHF. Continue current medical management (7) Hypertension: Plan: Blood pressure is low but acceptable with midodrine. Metoprolol dosage could be down titrated if needed. Will follow (8) Type 2 diabetes mellitus: Plan: NPH insulin placed on hold due to hypoglycemia on the morning of September 15. Glucose 140 this morning, September 17. Continue sliding scale coverage as needed. ADA diet (9) Current smoker: Plan: Smoking cessation has been highly recommended to the patient (10) Anxiety state: Plan: P.o. lorazepam every 12hr as needed Plan To be determined by clinical response to treatment. Hopefully she will eventually be able to return home Admission and Anticipated Discharge Date Admission Date: September 12, 2024 Subjective 64 yo female reports no new symptoms. Physical Exam Physical Exam: General-alert and oriented x3, no fever, no chills HEENT-head atraumatic and normocephalic, Chest-bibasilar inspiratory rales. No rhonchi. No wheeze Cardiac-regular rate and rhythm, normal S1 and S2 Abdomen-normal bowel sounds, no hepatosplenomegaly Extremities-2+ pitting edema bilateral lower extremities below the knees Results & Data Results & Data Vital Signs (Past 12 Hours) Vital Signs Temp Pulse Pulse Pulse Resp BP Pulse Ox 09/20/24 15:05 36.7 C 92 H 20 92/67 L 88 L 09/20/24 11:07 36.5 C 93 H 12 93/66 L 87 L 09/20/24 07:19 88 09/20/24 07:09 36.3 C L 89 18 101/71 90 O2 Del Method O2 Flow Rate 09/20/24 15:05 Nasal Cannula 09/20/24 11:07 High Flow Nasal Cannula 3 09/20/24 07:19 09/20/24 07:09 Nasal Cannula 3 PG Care Time/CCT Total # of Minutes Spent Total Time Spent with Patient: Total time spent is greater than 50% in coordination of care (as documented) at patient's floor/unit and/or counseling patient: Coding Level of Care Code 52388 SUB INP/OBS CARE 3/50MIN Diagnoses Acute on chronic respiratory failure with hypoxia and hypercapnia J96.21; J96.22 Acute on chronic systolic heart failure I50.23 Hypotension I95.9 Candidiasis of mouth and esophagus B37.81; B37.0 Dilated cardiomyopathy I42.0 COPD (chronic obstructive pulmonary disease) J44.9 Hypertension I10 Type 2 diabetes mellitus E11.9 Current smoker F17.200 Anxiety state F41.1
[2024-09-21] MEDS ORDERED: Nursing to Pharmacy Communication SCH ×2 (02:30→12:30)
[2024-09-21] MEDS: INSULIN ASPART PER UNIT CHARGE SC SCH ×2 (05:36→12:27)
[2024-09-21 05:54] LABS: Hematocrit (blood only) 35.5 % (37.0-47.0); Hemoglobin 11.1 g/dl (12.0-16.0); Mean Corpuscular Hemoglobin 26.4 pg (25.0-34.0); Mean Corpuscular Volume 84.3 fL (80.0-100.0); Platelet Count 258 K/uL (130-400); RDW Standard Deviation 53.1 fL (36.4-46.3); Red Blood Count 4.21 M/uL (4.20-5.40); White Blood Count 6.69 K/ul (4.8-10.8)
[2024-09-21 06:09] LABS: Anion Gap 7.0 (3-11); Blood Urea Nitrogen 30.0 mg/dl (6-23); Calcium 8.8 mg/dl (8.6-10.3); Carbon Dioxide 35.0 mmol/L (21-32); Chloride 95.0 mmol/L (98-107); Creatinine Clr Calc Pharmacy 44.9 ml/min; Glucose 143.0 mg/dl (70-99(Fasting)); Potassium 4.3 mmol/L (3.5-5.1); Sodium 137.0 mmol/L (136-145)
--- NOTE | 2024-09-21 08:38 | History & Physical Bridge Note ---
Date of Service September 21, 2024 History & Physical Bridge Note I have examined the patient, reviewed the History & Physical and in the interval since the performance of the History & Physical I have noted the following changes of clinical significance: no changes noted. I reviewed the indications, procedure, risks and alternatives with the patient, and answered all questions. Patient understands and agrees to the procedure. Consent obtained. I also reviewed the risks and use of sedation, patient understands and consent obtained.
--- NOTE | 2024-09-21 08:38 | Pre Anesthesia Assessment ---
Date of Service September 21, 2024 Pre Sedation Assessment Vital Signs Temp Pulse Pulse Pulse Resp BP BP 09/21/24 07:48 90 18 104/68 09/21/24 07:10 09/21/24 07:08 36.3 C L 90 20 97/65 L 09/21/24 06:26 88 09/21/24 03:14 94 H 19 90/60 L 09/21/24 03:03 36.7 C 72 20 89/64 L 09/20/24 22:58 36.7 C 100 H 20 90/62 L 09/20/24 22:38 96 H 09/20/24 21:10 09/20/24 19:21 36.6 C 91 H 18 101/71 09/20/24 15:41 95 H 09/20/24 15:05 36.7 C 92 H 20 92/67 L 09/20/24 13:00 09/20/24 11:07 36.5 C 93 H 12 93/66 L Pulse Ox O2 Del Method O2 Flow Rate 09/21/24 07:48 86 L Nasal Cannula 3 09/21/24 07:10 90 Nasal Cannula 4 09/21/24 07:08 87 L Nasal Cannula 09/21/24 06:26 09/21/24 03:14 93 High Flow Nasal Cannula 4 09/21/24 03:03 91 Nasal Cannula 09/20/24 22:58 90 Nasal Cannula 09/20/24 22:38 09/20/24 21:10 High Flow Nasal Cannula 3 09/20/24 19:21 91 Nasal Cannula 09/20/24 15:41 09/20/24 15:05 88 L Nasal Cannula 09/20/24 13:00 Nasal Cannula 3 09/20/24 11:07 87 L High Flow Nasal Cannula 3 Cardiovascular RRR, no murmur, no edema Respiratory normal respiratory effort, lungs clear to auscultation Pre-Sedation Airway Assessment Smoking Status: Current every day smoker Hx Sleep Apnea: No Short, Thick Neck: No Thyromental Distance: > or= 3.5 Finger Breadths Oral Cavity: + WNL Mallampati Class: III ASA: ASA4 NPO Status Date of Last Intake of Fluids: 09/20/24 Time of Last Intake of Fluids: 21:00 Date of Last Intake of Solid Food: 09/20/24 Time of Last Intake of Solid Foods: 21:00 Procedure Planning Contraindications for Sedation: none Current Medications Reviewed: Yes Notes The planned sedation has been discussed with the patient. Informed Consent was obtained. I have identified the patient, determined the appropriateness of sedation and have assessed the patient immediately prior to the procedure. All medicine(s) and interventions are by my order.
[2024-09-21] MEDS: WATER, STERILE FOR INJ 10 ML VIAL ONE (09:31)
[2024-09-21] MEDS: VANCOMYCIN HCL 1000MG/20ML VIAL ONE (09:31)
[2024-09-21] MEDS: CLINDAMYCIN 900 MG/D5W 50 ML BAG IV ONE (09:31)
[2024-09-21] MEDS: LIDOCAINE 1% LOCAL 20 ML VIAL ONE (09:31)
--- NOTE | 2024-09-21 10:59 | Post Anesthesia Assessment ---
Date of Service September 21, 2024 Post Sedation Assessment Vital Signs Temp Pulse Pulse Pulse Resp BP BP 09/21/24 07:48 90 18 104/68 09/21/24 07:10 09/21/24 07:08 36.3 C L 90 20 97/65 L 09/21/24 06:26 88 09/21/24 03:14 94 H 19 90/60 L 09/21/24 03:03 36.7 C 72 20 89/64 L 09/20/24 22:58 36.7 C 100 H 20 90/62 L 09/20/24 22:38 96 H 09/20/24 21:10 09/20/24 19:21 36.6 C 91 H 18 101/71 09/20/24 15:41 95 H 09/20/24 15:05 36.7 C 92 H 20 92/67 L 09/20/24 13:00 09/20/24 11:07 36.5 C 93 H 12 93/66 L Pulse Ox O2 Del Method O2 Flow Rate 09/21/24 07:48 86 L Nasal Cannula 3 09/21/24 07:10 90 Nasal Cannula 4 09/21/24 07:08 87 L Nasal Cannula 09/21/24 06:26 09/21/24 03:14 93 High Flow Nasal Cannula 4 09/21/24 03:03 91 Nasal Cannula 09/20/24 22:58 90 Nasal Cannula 09/20/24 22:38 09/20/24 21:10 High Flow Nasal Cannula 3 09/20/24 19:21 91 Nasal Cannula 09/20/24 15:41 09/20/24 15:05 88 L Nasal Cannula 09/20/24 13:00 Nasal Cannula 3 09/20/24 11:07 87 L High Flow Nasal Cannula 3 Recovery Score Activity: Moves 4 extremities Respiration: Deep Breath/Cough Circulation: +/-20% PreAnes Value Consciousness: Fully Awake Oxygen Saturation: > 92% On Room Air Post Anesthesia Score: 10 Discharge Sedation Level of Care: Fast Track Phase II Post Sedation Plan On clinical assessment, the patient appears to have tolerated the sedation without complications. Patient is recovering as anticipated. Patient will continue to be monitored by nursing and may be discharged when sedation discharge criteria are met per below protocol. Upon Completions of procedure up to 15 minutes continue every 5 minute vital signs and the P.A.R. score; then discharge to a Phase I or Fast Track to Phase II per the following guidelines: * Discharge Patient to appropriate Phase II area if PAR is 8 or greater or return to pre- procedure baseline. The post - procedure orders will be as directed. * If PAR score is less than 8 or not return to pre-procedure baseline then patient will follow Phase I monitoring till PAR is reached for Phase II. The Phase I may be done in procedure room or may call to secure a Phase I area. * If naloxone or flumazenil are used for reversal, hold in Phase I for enzo nued monitoring from when last reversal dose was given for a minimum of 60 minutes or longer pending the nurse and/or physician discretion of patient condition before discharge to Phase II. Please call the Sedation Physician to re-evaluate and complete post-note for discharge to Phase II area. Do NOT discharge from procedure sedation or Phase 1 until post- sedation evaluation note is complete by procedure /sedation MD Sedation Discharge Instructions to be given to the patient at discharge to home.
--- NOTE | 2024-09-21 10:59 | Electrophysiology Report ---
Date of Service September 21, 2024 Electrophysiology Procedure Electrophysiology Procedure Report Preoperative diagnosis: Left bundle branch block, cardiomyopathy, congestive heart failure Postoperative diagnosis: Same Procedure: Atrial and ventricular defibrillator lead implantation Coronary sinus angiography Left ventricular lead implantation Biventricular ICD implantation Surgeon: Yoan Navarrete MD Estimated blood loss: 50 cc Complications: None Disposition: Cardiology recovery Procedure details: After obtaining informed consent for the procedure, the patient was brought to the laboratory and prepped and draped in the standard sterile manner. The left prepectoral region was anesthetized with 1% lidocaine local anesthetic and left axillary venipuncture was performed by percutaneous technique and a guidewire placed through the left subclavian vein into the superior vena cava. The area was further infiltrated with 1% lidocaine local anesthetic and a 5 cm incision was made parallel to the left clavicle and 2 cm below it and carried down to the anterior pectoralis fascia. An ICD pocket was formed by blunt dissection anterior to the pectoralis fascia and a vancomycin- soaked sponge was placed in the pocket. A 10.5 [place] Medtronic lead introducer was placed over the guidewire into the left subclavian vein, the dilator and guidewire were removed and a bipolar active fixation steroid tipped ventricular ICD lead was advanced through the introducer into the superior vena cava. A guidewire was placed through the introducer and the introducer was stripped from the lead and guidewire. An 8 [place] Medtronic lead introducer was placed over the guidewire into the left subclavian vein, the dilator and guidewire were removed and a bipolar active fixation steroid tipped atrial lead was advanced through the introducer into the superior vena cava. A guidewire was placed back through the introducer and the introducer was stripped from the lead and guidewire. Using a curved stylette the ventricular lead was advanced through the right ventricular outflow tract into the pulmonary artery and then using a straight stylette was positioned in the right ventricular apex. The screw was extended fixing the lead in position. Pacing and sensing thresholds were evaluated in bipolar configuration and are recorded on the implant data sheet. Diaphragmatic pacing was evaluated at full bipolar output as indicated on the data sheet. Using a curved stylette the atrial lead was positioned in the region of the atrial appendage and the screw extended fixing the lead in position. Pacing and sensing thresholds were evaluated in bipolar configuration and are recorded on the implant data sheet. Diaphragmatic pacing was evaluated at full bipolar output as indicated on the data sheet. Once the leads were in position they were attached to the anterior pectoralis fascia using 1 suture of 2-0 silk around each lead collar. The short guidewire was exchanged for a long guidewire and a Gelacio coronary sinus sheath was advanced to position in the right atrium. The curved obturator was placed through the sheath and using x-ray dye the os of the coronary sinus was identified. A guidewire was placed through the introducer into the coronary sinus and the [place] sheath was advanced into the coronary sinus. A good vessel was identified and a 0.014 inch guidewire was advanced into this vessel. A quadripolar coronary sinus catheter was advanced over the guidewire into good distal position. The left ventricular pacing threshold was evaluated in various configurations, as recorded on the implant data sheet. Diaphragmatic pacing was evaluated at full output, as indicated on the data sheet. Once this lead was in position the introducer system was removed from the lead and the lead was attached to the anterior pectoral fascia using 2 sutures of 2-0 silk around the lead collar. An additional suture of 2-0 silk was placed around each of the atrial and ventricular lead collars as well. The [place] was-soaked sponge was removed from the pocket, hemostasis was obtained, the ICD was attached to the leads and placed in the pocket with the leads coiled beneath it. The incision was closed with a running double subcuta neous closure of 3-0 Vicryl absorbable suture, followed by running subcuticular skin closure of 4-0 Vicryl absorbable suture. Bacitracin ointment was placed on the incision and a pressure dressing applied. [facility] [place] Electrophysiology codes Indication for Procedure (1) LBBB (left bundle branch block): (2) Cardiomyopathy: (3) Acute on chronic systolic heart failure: Pacing Procedure 1: Pacin BiV electrode w/Pacer / ICD implant, add on code ICD Procedure 1: ICD: 82163 Insert single or dual ICD system Miscellaneous Procedures Procedure 1: EP Miscellaneous: 50313-97 Venography, CS supevsion/interp Procedure 2: EP Miscellaneous: 57764 Contrast injection for venography PG Moderate Sedation Codes Moderate Sedation Codes Procedure 1: Sedation/Anesthesia: 03963 Mod Sedation by the same physician;Init15 Min Child Age 5 & Up Procedure 2: Sedation/Anesthesia: 25307 Mod Sedation by the same physician; Ea [id number] Minutes
[2024-09-21] MEDS: MIDAZOLAM HCL 5 MG/ML 1 ML VIAL ONE (11:07)
[2024-09-21] MEDS: FUROSEMIDE 40 MG TAB PO SCH (17:00)
[2024-09-21] MEDS: ACETAMINOPHEN 325 MG TAB PO PRN (20:20)
--- NOTE | 2024-09-21 22:53 | Hospitalist Progress Note ---
Date of Service September 21, 2024 Assessment & Plan (1) Acute on chronic respiratory failure with hypoxia and hypercapnia: Plan: Supplemental oxygen per nasal cannula to keep saturations 90 to 92%. Avoid high oxygen saturations to prevent further CO2 retention. Wean to usual levels as tolerated. Treat underlying CHF resumed lasix for afternoon dose, will monitor renal status (2) Acute on chronic systolic heart failure: Plan: Appreciate cardiology consultation and recommendations. She has been started on spironolactone and Jardiance. Biventricular pacemaker is being considered. Left heart catheterization has tentatively been scheduled for tomorrow, September 17. Continue parenteral Lasix. She is now having a brisk diuresis with the parenteral Lasix. Chest x-ray done today, September 17, continues to show evidence of CHF with bilateral pleural effusions, left greater than right. She underwent cardiac echo today, September 17. Results are pending. heart catheterization completed, September 18 Ordered acetazolamide on 09/19 due to metabolic alkalosis Patient continues to diurese, oxygen requirement improving. She appears to be back to her baseline. Patient is now euvolemic. metabolic alkalosis is better. Will resume home dose of lasix. (3) Hypotension: Plan: Midodrine appears to have helped. Blood pressure is low normal but acceptable. Cardiology has started her on spironolactone and Jardiance. (4) Candidiasis of mouth and esophagus: Plan: Probably due to recent steroid therapy coupled with diabetes. Resolving with nystatin swish and swallow (5) Dilated cardiomyopathy: Plan: Known ejection fraction of 15% per recent echo. Appreciate cardiology consultation recommendations. Biventricular pacing is being considered. Left heart catheterization is scheduled for tomorrow, September 17 (6) COPD (chronic obstructive pulmonary disease): Plan: With chronic respiratory failure. Treat underlying CHF. Continue current medical management (7) Hypertension: Plan: Blood pressure is low but acceptable with midodrine. Metoprolol dosage could be down titrated if needed. Will follow (8) Type 2 diabetes mellitus: Plan: NPH insulin placed on hold due to hypoglycemia on the morning of September 15. Glucose 140 this morning, September 17. Continue sliding scale coverage as needed. ADA diet (9) Current smoker: Plan: Smoking cessation has been highly recommended to the patient (10) Anxiety state: Plan: P.o. lorazepam every 12hr as needed Plan anticipate early discharge soon. Admission and Anticipated Discharge Date Admission Date: September 12, 2024 Subjective Patient reports no new symptoms. Physical Exam Physical Exam: General-alert and oriented x3, no fever, no chills HEENT-head atraumatic and normocephalic, Chest-decreased inspiratory rales No rhonchi. No wheeze Cardiac-regular rate and rhythm, normal S1 and S2 Abdomen-normal bowel sounds, no hepatosplenomegaly Extremities-2+ pitting edema bilateral lower extremities below the knees Results & Data Results & Data Vital Signs (Past 12 Hours) Vital Signs Temp Pulse Pulse Pulse Resp BP BP 09/21/24 19:18 36.5 C 92 H 20 94/67 L 09/21/24 17:44 102 H 09/21/24 14:06 09/21/24 14:00 36.4 C L 96 H 18 93/65 L 09/21/24 13:30 36.3 C L 95 H 17 97/66 L 09/21/24 13:00 36.3 C L 94 H 16 104/67 09/21/24 12:30 36.3 C L 93 H 17 96/66 L 09/21/24 12:12 36.7 C 103 H 18 101/78 09/21/24 11:42 36.7 C 98 H 18 91/63 L 09/21/24 11:20 88 18 106/73 09/21/24 11:05 96 H 18 101/80 Pulse Ox O2 Del Method O2 Flow Rate 09/21/24 19:18 91 High Flow Nasal Cannula 4.0 09/21/24 17:44 09/21/24 14:06 Nasal Cannula 5 09/21/24 14:00 90 High Flow Nasal Cannula 09/21/24 13:30 90 Room Air, High Flow Nasal Cannula 4 09/21/24 13:00 91 High Flow Nasal Cannula 4 09/21/24 12:30 89 L Nasal Cannula 5 09/21/24 12:12 90 High Flow Nasal Cannula 5 09/21/24 11:42 91 High Flow Nasal Cannula 7 09/21/24 11:20 88 L Nasal Cannula 3 09/21/24 11:05 86 L Nasal Cannula 3 PG Care Time/CCT Total # of Minutes Spent Total Time Spent with Patient: Total time spent is greater than 50% in coordination of care (as documented) at patient's floor/unit and/or counseling patient: Coding Level of Care Code 94252 SUB INP/OBS CARE 3/50MIN Diagnoses Acute on chronic respiratory failure with hypoxia and hypercapnia J96.21; J96.22 Acute on chronic systolic heart failure I50.23 Hypotension I95.9 Candidiasis of mouth and esophagus B37.81; B37.0 Dilated cardiomyopathy I42.0 COPD (chronic obstructive pulmonary disease) J44.9 Hypertension I10 Type 2 diabetes mellitus E11.9 Current smoker F17.200 Anxiety state F41.1
[2024-09-22 00:16] VITALS: RESP 18
[2024-09-22 02:34] VITALS: TEMP 97.5; O2SAT 91
[2024-09-22 05:46] LABS: Hematocrit (blood only) 36.5 % (37.0-47.0); Hemoglobin 11.6 g/dl (12.0-16.0); Mean Corpuscular Hemoglobin 26.5 pg (25.0-34.0); Mean Corpuscular Volume 83.5 fL (80.0-100.0); Platelet Count 248 K/uL (130-400); RDW Standard Deviation 52.3 fL (36.4-46.3); Red Blood Count 4.37 M/uL (4.20-5.40); White Blood Count 6.64 K/ul (4.8-10.8)
[2024-09-22 06:07] LABS: Anion Gap 8.0 (3-11); Blood Urea Nitrogen 36.0 mg/dl (6-23); Calcium 9.0 mg/dl (8.6-10.3); Carbon Dioxide 34.0 mmol/L (21-32); Chloride 95.0 mmol/L (98-107); Creatinine Clr Calc Pharmacy 39.7 ml/min; Glucose 156.0 mg/dl (70-99(Fasting)); Potassium 4.6 mmol/L (3.5-5.1); Sodium 137.0 mmol/L (136-145)
[2024-09-22 07:21] VITALS: BP 94/63; PULSE 90
--- NOTE | 2024-09-22 08:58 | Discharge Summary ---
Discharge Summary Date of Service September 22, 2024 Principal Dx & Hospital Course #1 = Principal Diagnosis (1) Acute on chronic respiratory failure with hypoxia and hypercapnia: Supplemental oxygen per nasal cannula to keep saturations 90 to 92%. Avoid high oxygen saturations to prevent further CO2 retention. Wean to usual levels as tolerated. Treat underlying CHF with laisx (2) Acute on chronic systolic heart failure: Appreciate cardiology consultation and recommendations. She has been started on spironolactone and Jardiance. Biventricular pacemaker is being considered. Left heart catheterization has tentatively been scheduled for tomorrow, September 17. Continue parenteral Lasix. She is now having a brisk diuresis with the parenteral Lasix. Chest x-ray done today, September 17, continues to show evidence of CHF with bilateral pleural effusions, left greater than right. She underwent cardiac echo today, September 17. Results are pending. heart catheterization completed, September 18 Ordered acetazolamide on 09/19 due to metabolic alkalosis Patient continues to diurese, oxygen requirement improving. She appears to be back to her baseline. Patient is now euvolemic. metabolic alkalosis is better. Will resume home dose of lasix daily and spironolactone. discussed with CHF clinic. (3) Hypotension: Midodrine appears to have helped. Blood pressure is low normal but acceptable. Cardiology has started her on spironolactone and Jardiance. (4) Candidiasis of mouth and esophagus: Probably due to recent steroid therapy coupled with diabetes. Resolving with nystatin swish and swallow (5) Dilated cardiomyopathy: Known ejection fraction of 15% per recent echo. Appreciate cardiology consultation recommendations. Biventricular pacing is being considered. Left heart catheterization is scheduled for tomorrowSeptember 17 (6) COPD (chronic obstructive pulmonary disease): With chronic respiratory failure. Treat underlying CHF. Continue current medical management (7) Hypertension: Blood pressure is low but acceptable with midodrine. Metoprolol dosage could be down titrated if needed. (8) Type 2 diabetes mellitus: NPH insulin placed on hold due to hypoglycemia on the morning of September 15. Glucose 140 this morning, September 17. Continue sliding scale coverage as needed. ADA diet (9) Current smoker: Smoking cessation has been highly recommended to the patient (10) Anxiety state: P.o. lorazepam every 12hr as needed Admission HPI Per Admitting Provider Ms Silveira is a 64yo female with long-standing chronic hypoxic respiratory failure on home O2, 3 liters continuously; COPD; ongoing tobacco dependence; T2DM; and recently diagnosed severe systolic CHF during her hospitalization in July from 08/04 to 08/06. She presents via EMS from her home with severe dyspnea at rest, dyspnea with minimal exertion, orthopnea, PND, worsening LE edema, worsening abdominal bloating/distension from edema, and at least 10 pounds of fluid weight since her hospital discharge on 08/06. She reports compliance with her lasix 40mg BID but ran out of such about 3 days ago. She has not been eating high-salt foods. After her July hospitalization she saw Dr Teena Moncada, cardiology in [place], and left heart cath was recommended as part of her work-up of the new-onset systolic CHF. This was scheduled for sometime in September. Upon presentation today to [facility] ER she was in distress and BIPAP was initiated. She could not tolerate such and thus was switched to high-flow NC. She did better with high-flow and her distress improved. Lasix IV was given by the ER attending. At the time of my assessment she was on high-flow NC, 40 liters/50% FiO2. She was able to give full history and reported her breathing was better in comparison to earlier in the day. Discharge Exam General-alert and oriented x3, no fever, no chills HEENT-head atraumatic and normocephalic, Chest-decreased inspiratory rales No rhonchi. No wheeze Cardiac-regular rate and rhythm, normal S1 and S2 Abdomen-normal bowel sounds, no hepatosplenomegaly Extremities-2+ pitting edema bilateral lower extremities below the knees Discharge Plan Discharge Items Patient Disposition: Home - Home Health Services Reason For Visit: ACUTE/CHRONIC HFrEF,ACUTE/CHRONIC HYPOXIC&HYPERCAP Discharge Diagnosis: Acute/ chronic HFrEF, acute/chronic hypoxic/hypercap Condition on Discharge: Fair Activity: Resume your previous activity Non-emergency contact: Primary Care Provider Call non-emergency contact if: you have any medication questions Follow-up/Referrals: Adrienne Malone PA-C [Primary Care Provider] - 09/24/24 10:30 am (Primary Care hospital follow up scheduled on 09/24/24 at 10:30 with Adrienne Malone) Illig,Amanda M., PA-C [Physician Immigration Inspector] - 09/29/24 10:00 am Diet: Carb Consistent or DM2 and Low Sodium (2gm) Fluids: 1500ml (6 cups) Addtl Attending Provider Instructions: Recommend followup with PCP in 1-2 weeks. Recommend followup with CHF clinic within 1 week Call your Primary Care doctor if any of the following symptoms or problems start or get worse: * Shortness of breath or difficulty breathing * Wake up at night short of breath * Chest pain * Cough * Swelling of your hands, feet, or legs * More fatigued or tired with your normal activity * Palpitations - sudden fast heart beats WEIGHT * Weigh yourself every morning after using the bathroom. * Use the same scale. * Wear the same amount of clothing. * Write your weight down on a chart. * Call your Primary Care doctor if you gain more than 2-3 pounds in 1-2 days. MEDICATIONS * Use this discharge instruction sheet for medication instructions. * Take your medications at the time your doctor ordered. * Do not skip a dose of your medicines. * If you miss a dose of medicine, take it as soon as possible, but DO NOT DOUBLE A DOSE. * Read your medicine information when you get home. * Know all of the side effects of your medicine. If in doubt, ask your pharmacist * Call your Primary Care doctor's office if you have any side effects. * Be sure all of your doctors know what medicine and herbs you take (including cold, flu, and herbal medicine). Take the following with you to your follow-up doctor appointments: * Weight Chart * Medication List * List of questions Do not drink excessive alcohol, beer or wine. Pending Studies at Discharge: Yes Stand-Alone Forms: [facility] [email or web address], Smoking Cessation Medications and DC Order Prescriptions: New spironolactone 25 mg Tablet 25 mg PO QAM Qty: 30 0RF Jardiance 10 mg Tablet 10 mg PO DAILY Qty: 30 0RF Continued quetiapine [Seroquel] 100 mg tablet 100 mg PO HS atorvastatin 20 mg tablet 20 mg PO QAM (DME) Oxygen Home Liters Per Minute See Rx Instructions .Route Rx Instructions: As directed, at night and with activity albuterol sulfate 90 mcg/actuation aerosol powdr breath activated 2 inh inhalation Q6H PRN (Reason: Shortness Of Breath Or Wheezing) albuterol sulfate 2.5 mg /3 mL (0.083 %) solution for nebulization 2.5 mg inhalation Q4H PRN (Reason: Shortness Of Breath Or Wheezing) quetiapine 25 mg tablet 25 mg PO QDL PRN (Reason: ONLY IF NEEDED PER PT.) aspirin 81 mg Tablet,Delayed Release (Dr/Ec) 81 mg PO DAILY pantoprazole 40 mg tablet,delayed release (DR/EC) 40 mg PO QAM quetiapine 50 mg tablet 50 mg PO QDL PRN (Reason: ONLY IF NEEDED PER PT) polyethylene glycol 3350 [Miralax] 17 gram Powder In Packet 17 g PO BID Qty: 0 0RF docusate sodium 100 mg Capsule 100 mg PO BID Qty: 0 0RF insulin glargine [Lantus Solostar U-100 Insulin] 100 unit/mL (3 mL) insulin pen 20 unit SUBCUT HS Changed metoprolol succinate 25 mg tablet extended release 24 hr 25 mg PO DAILY Qty: 30 0RF Discontinued furosemide [Lasix] 40 mg tablet 40 mg PO BID No Action furosemide [Lasix] 40 mg tablet 40 mg PO DAILY Qty: 90 3RF Discharge Orders: Discharge Order- CHF (Routine); Ordered 09/22/24 Ordered By: Agustin Kent Admission Data Admit Date/Time: 09/12/24 23:25 Attending Provider: Agustin Kent Admit Provider: Balwinder Mock Primary Care Provider: Adrienne Malone Other Providers: Holland Kramer; Yoan Navarrete; Zheng Farfan; [facility] Other Interventions: Discharge Summary Assessment (RN) Last Done: 09/22/24 09:56 Hospital Stay Data Consultations 09/12/24 22:00 ED Decision to Admit Stat 09/14/24 13:59 Consult Cardiology Routine 09/22/24 08:43 [facility] CHF Program Referral Routine Procedures Performed Operation Date: 09/21/24 08:00 Actual Procedures p ICD Insertion Single or Dual - Yoan Navarrete MD Diagnostic Imagining Performed 09/17/24 06:52 CL Cath Imgs for PACS use only Routine 09/18/24 11:48 CL Cath Imgs for PACS use only Routine 09/21/24 06:45 EP Lab Images for PACS ONCE Pending Results Patient Have Any Pending Studies at Discharge: Yes Discharge Instructions Given to Patient (Per Discharging Provider) Recommend followup with PCP in 1-2 weeks. Recommend followup with CHF clinic within 1 week Call your Primary Care doctor if any of the following symptoms or problems start or get worse: * Shortness of breath or difficulty breathing * Wake up at night short of breath * Chest pain * Cough * Swelling of your hands, feet, or legs * More fatigued or tired with your normal activity * Palpitations - sudden fast heart beats WEIGHT * Weigh yourself every morning after using the bathroom. * Use the same scale. * Wear the same amount of clothing. * Write your weight down on a chart. * Call your Primary Care doctor if you gain more than 2-3 pounds in 1-2 days. MEDICATIONS * Use this discharge instruction sheet for medication instructions. * Take your medications at the time your doctor ordered. * Do not skip a dose of your medicines. * If you miss a dose of medicine, take it as soon as possible, but DO NOT DOUBLE A DOSE. * Read your medicine information when you get home. * Know all of the side effects of your medicine. If in doubt, ask your pharmacist * Call your Primary Care doctor's office if you have any side effects. * Be sure all of your doctors know what medicine and herbs you take (including cold, flu, and herbal medicine). Take the following with you to your follow-up doctor appointments: * Weight Chart * Medication List * List of questions Do not drink excessive alcohol, beer or wine. Total Time Total Time Spent Total Time Spent (In Minutes): 32 Coding Level of Care Code 00152 INP/OBS DISCH >30 MIN Diagnoses Acute on chronic respiratory failure with hypoxia and hypercapnia J96.21; J96.22 Acute on chronic systolic heart failure I50.23 Hypotension I95.9 Candidiasis of mouth and esophagus B37.81; B37.0 Dilated cardiomyopathy I42.0 COPD (chronic obstructive pulmonary disease) J44.9 Hypertension I10 Type 2 diabetes mellitus E11.9 Current smoker F17.200 Anxiety state F41.1
--- NOTE | 2024-09-22 10:17 | XRay Report ---
XR chest 2V PA/lateral CLINICAL HISTORY: EXACT TIME ORDERED Evaluate for pneumothorax and l COMPARISON STUDY: 09/17/2024 FINDINGS: There is an interval left-sided pacemaker/ICD. There is no pneumothorax. There is stable mi ld cardiomegaly with pulmonary vascular congestion. Stable bilateral pleural effusions and associated lung base consolidation, left greater than right. IMPRESSION: No pneumothorax. Otherwise as described. ACT 112: Negative or not required by law. Electronically signed by: Avery Martin M.D. 09/22/2024 10:15 AM
--- NOTE | 2024-09-22 14:41 | Electrocardiogram Report ---
Test Reason : Blood Pressure : */* mmHG Vent. Rate : 95 BPM Atrial Rate : 95 BPM P-R Int : * ms QRS Dur : 90 ms QT Int : 368 ms P-R-T Axes : 71 87 -7 degrees QTcB Int : 462 ms Ventricular-paced rhythm Abnormal ECG When compared with ECG of 19-Sep-2024 12:09, Electronic ventricular pacemaker has replaced Sinus rhythm Confirmed by Emery Anaya ([id number]) on 09/22/2024 2:41:41 PM Referred By: Adrienne Malone Confirmed By: Emery Anaya
== END 2024-09-22 10:20 | disposition home health service (06) | DRG 275 ==
LOC: ED 20:03 → SUATTDRO 23:25 → 2E 23:25
PROC: CLB.CCO (2024-09-18 12:00)
PROC: EPB.ICD (2024-09-21 08:00)